=== PATIENT | male | born 1955 | race Caucasian/White ===

== ENCOUNTER → 2017-04-19 | Outpatient (CLI) | payer MEDICARE ==
--- NOTE | 2017-04-19 18:10 | CONS ---
DATE OF CONSULTATION: DATE: CONSULTATION/NEW PATIENT EVALUATION HISTORY OF PRESENT ILLNESS/SLEEP-WAKE EVALUATION: 61-year-old gentleman who has been seen in the sleep center for a central and obstructive sleep apnea-hypopnea syndrome. History of present illness/sleep-wake evaluation: Patient had been diagnosed with complex sleep apnea in 2011, after that what had had CPAP titration which was not very successful and the patient continued to have significant amount of central apneas total of 336 and obstructive apneas. He was started on treatment with auto PAP with regimen between 5 and 11 and according to the patient, with this regimen he does not have any snoring, sleeps well. Present his machine has had some problem. Humidifier does not work. SLEEP SCHEDULE: Patient's sleep schedule from around 10:00 p.m. until 6:00 a.m. FALLING ASLEEP: She has a TV set in bedroom. DURING SLEEP: Usually sleeps on the side position. Wakes up from sleep 3 times with one episode of nocturia. DURING THE DAY/WAKE STATE: [place] Sleepiness Scale today is 3. Patient is asking to replace his CPAP unit. Past medical history is positive for: 1. Hypertension. 2. Prostate cancer. 3. Leukemia. PAST SURGICAL HISTORY: Appendectomy, prostate has been removed in 2009. MEDICATIONS: 1. Vytorin. 2. Gleevec. 3. Magnesium. 4. Fish oil. 5. Centrum. SOCIAL HISTORY: Positive for smoking for about 40 years, presently about 1/2 pack a day. He continues smoking. Alcohol consumption: None. REVIEW OF SYSTEMS: Snoring, awakenings from sleep. No fevers. No double vision. No recent chest pain. No shortness of breath. No abdominal pain. No bleeding episodes. No blood in urine. No seizure episodes. FAMILY HISTORY: Hypertension, heart problems, hyperlipidemia, cancer, bronchitis, snoring, acid reflux. PHYSICAL EXAMINATION: During physical exam, gentleman without distress. VITAL SIGNS: BP 133/74, HR 74, RR 16. Height 5 feet 8-1/2 inches. Weight 231. BMI 34.6. Neck 18-1/2 inches in circumference. Temperature 97.8. Oxygen saturation at room air 96%. Oropharynx extremely low position of soft palate. Abdomen obese. NECK: Supple. No JVD. Thyroid is not palpable. LUNGS: Clear to percussion and to auscultation. Good air exchange. No wheezing or rhonchi. HEART: S1, S2 regular. No murmurs, gallops or rubs. ABDOMEN: Soft and nontender. Bowel sounds are present. No organomegaly appreciated. EXTREMITIES: No clubbing or cyanosis. STEP DOWN SPECIALIST: Awake, alert, and oriented x3. Cranial nerves 2 to 7 intact. There is no fasciculation or atrophy noted. No focal deficits observed. IMPRESSION: 1. Complex central and obstructive sleep apnea-hypopnea syndrome. Patient is on treatment with auto BiPAP with the range of pressure of 5 to 11. Presently technical problem with the machine. 2. Obesity. 3. Hypertension. 4. History of leukemia. 5. History of prostate cancer, status post prostatectomy. 6. Status post appendectomy. PLAN: 1. Prescription to replace CPAP unit with automatic regimen 5 to 11. 2. I will see the patient for follow-up visit about one month after he will be started on treatment with CPAP to evaluate clinical response on treatment, compliance with treatment and make any necessary adjustments. 3. Losing weight. 4. No driving if feeling any sleepiness. Thank you very much for allowing me to participate in the management of your patient. Sincerely, Dragan Brown MD, PhD, FAASM. Diplomat of [place] [employer], Sleep Medicine Board by [place] [employer] [employer] Integrity Director of [facility] [place]
== END | disposition home or self-care (01) ==
LOC: SLEEP 13:10
PROVIDERS: ATTEND Internal Medicine
DX: G47.33 Obstructive sleep apnea (adult) (pediatric) (principal); E66.9 Obesity, unspecified; I10 Essential (primary) hypertension; Z85.46 Personal history of malignant neoplasm of prostate; Z85.6 Personal history of leukemia; Z90.79 Acquired absence of other genital organ(s); Z90.89 Acquired absence of other organs; Z79.899 Other long term (current) drug therapy; Z87.891 Personal history of nicotine dependence
CPT/HCPCS: 99211

== ENCOUNTER → 2017-06-28 | Outpatient (CLI) | payer MEDICARE ==
--- NOTE | 2017-06-28 22:57 | PN ---
DATE OF SERVICE: 06/28/2017 This patient is a 62-year-old gentleman who has been followed in the sleep center for treatment of obstructive sleep apnea and central sleep apnea/ hypopnea syndrome. Recently the patient received a new CPAP unit and he is able to use the equipment every night without significant problems. He likes the new machine; sleeps better with it and feels better during the day. Today Prosser Sleepiness Scale is only 1. I checked the patient's unit. Usage is 30 out of 30 nights for more than 4 hours ; average 7.9 hours. Pressure is 11 cm of water. Leak is 13 L/minute. Apnea/ hypopnea index 8.9, related to central apneas 2.2; last night 7.5. MEDICATIONS: 1. Vytorin. 2. Gleevec. 3. Magnesium. 4. Fish oil. 5. Centrum. During physical exam, patient is a pleasant 62-year-old gentleman in no distress. VITAL SIGNS: BP 144/79, HR 92, RR 16. Weight 232. Temperature 98.0. Oxygen saturation at room air 96%. HEENT: PERRLA. EOMI. Evaluation of oropharynx showed tongue protrudes midline; extremely low position of soft palate. NECK: Supple. No JVD. Thyroid is not palpable. LUNGS: Clear to percussion and to auscultation. Good air exchange. No wheezing or rhonchi. HEART: S1, S2 regular. No murmurs, gallops or rubs. ABDOMEN: Obese. EXTREMITIES: No clubbing or cyanosis. SHIP CARPENTER: Awake, alert and oriented x3. Cranial nerves 2 through 7 are intact. There is no fasciculation or atrophy noted. No focal deficits observed. IMPRESSION: 1. Complex central and obstructive sleep apnea/hypopnea syndrome. Patient demonstrated 100% compliance with treatment, benefitting from treatment. 2. Obesity. 3. Hypertension. 4. History of leukemia. 5. History of prostate carcinoma, status post prostatectomy. 6. Status post appendectomy. PLAN: 1. I will continue to use the machine on automatic regimen from 5 cm of water, but I will increase maximal pressure to 13. 2. Losing weight. 3. Sleep hygiene with regular time in bed for at least 8 hours. 4. No driving if feeling any sleepiness. 5. Follow-up visit in 3 months. Thank you very much for allowing me to participate in the management of your patient. Sincerely, Dragan Brown. , PhD, FAASM. Diplomat of [place] [employer], Sleep Medicine Board by [place] [employer] [place] [employer] Chemical Laboratory Scientist of [facility] [place] [facility]
== END | disposition home or self-care (01) ==
LOC: SLEEP 15:11
PROVIDERS: ATTEND Internal Medicine
DX: G47.33 Obstructive sleep apnea (adult) (pediatric) (principal); E66.9 Obesity, unspecified; I10 Essential (primary) hypertension; Z98.890 Other specified postprocedural states

== ENCOUNTER → 2017-08-02 | Outpatient (CLI) | payer MEDICARE ==
--- NOTE | 2017-08-02 11:27 | PN ---
PROGRESS NOTE DATE OF SERVICE: 08/02/2017 A 62-year-old gentleman has been followed in Sleep Center for treatment of obstructive and central sleep apnea-hypopnea syndrome. During the previous visit because apnea- hypopnea index was increased to 8.9, I changed regimen in his machine. Patient continued to use his machine every night without problem according to his . No snoring. No daytime sleepiness. Wood Sleepiness Scale is 0. I checked patient's CPAP unit. I had set the range of the pressure 5 to 13 automatic regimen. The usage is 30/30 nights. Leak is 70 L/min. Pressure is 12.8 by the machine reading. Apnea-hypopnea index for the last night is 5.6, which is improving and for the last month in the range of 8. MEDICATIONS: Vytorin, Gleevec, magnesium supplement, fish oil, Centrum. PHYSICAL EXAM: Patient in no distress. BP 139/71, HR 82, RR 16, height 5, 8, weight 234, BMI 35.5, temperature 98.4, oxygen saturation on room air 96%. OROPHARYNX: Extremely low position of soft palate. ABDOMEN: Obese. Neck Supple, no JVD. Thyroid is not palpable. LUNGS Clear to percussion and to auscultation. Good air exchange. No wheezing or rhonchi. HEART S1, S2 regular. No murmurs, gallops, or rubs. EXTREMITIES No clubbing or cyanosis. PUBLIC RELATIONS COUNSELOR Awake, alert, and oriented X3. Cranial nerves 2 to 7 intact. There is no fasciculation or atrophy. noted. No focal deficits observed. IMPRESSION: 1. Complex obstructive and central sleep apnea-hypopnea syndrome. Patient demonstrated 100% compliance with treatment with increasing pressure. His breathing improved benefiting from treatment. 2. Obesity. 3. Hypertension. 4. History of leukemia. 5. History of prostate CA, status post prostatectomy. 6. Status post appendectomy. PLAN: 1. Patient will continue to use treatment every night for the whole night. 2. I will increase maximal pressure to 14. 3. Losing weight. 4. Sleep hygiene with regular time in bed for at least 8 hours. 5. No driving if feeling sleepiness. Thank you very much for allowing me to participate in the management of your patient. Sincerely, Dragan Brown MD, PhD, FAASM Diplomat of [employer] Medicine Automated Equipment Engineer Technician of [facility] [place] MMCLARKL / PATSYN: [id number] /
== END ==
LOC: SLEEP 09:44
PROVIDERS: ATTEND Internal Medicine
DX: G47.33 Obstructive sleep apnea (adult) (pediatric) (principal); E66.9 Obesity, unspecified; I10 Essential (primary) hypertension; Z90.89 Acquired absence of other organs; Z85.46 Personal history of malignant neoplasm of prostate; Z79.899 Other long term (current) drug therapy

== ENCOUNTER → 2018-03-28 | Outpatient (CLI) | payer MEDICARE ==
--- NOTE | 2018-03-28 10:12 | CTL ---
EXAMINATION TYPE: CT Low Dose Lung DATE OF EXAM ORDERED: 03/28/2018 HISTORY: Personal history of tobacco abuse. Lung cancer screening CT DLP: 126.[address] CTDI: 3.6 mGy Automated exposure control for dose reduction was used. SCREENING VISIT: Initial COMPARISON: None TECHNIQUE: Low dose computed tomography scan was performed through the chest at 1 mm thick sections a nd reconstructed images in the coronal plane at [address] DIAGNOSTIC QUALITY: Satisfactory FINDINGS: LUNG NODULES: There is a 5 mm solid pulmonary nodule within the right lung apex on series 4 image 23. There is a bilobed 1.2 cm pulmonary nodule within the right lung apex on series 4 image 37 that is so lid in nature and elongated. There is a 3 mm right upper lobe medial solid pulmonary nodule on series 4 image 43. There is a 2 mm solid pulmonary nodule on series 4 image 64 in the anterior right upper lobe. There is a groundglass nodule in the right upper lobe along the interlobar fissure peripherally on se anamika 4 image 111 measuring 5 mm. There is a subpleural 2 mm groundglass nodule within the lingula on series 4 image 186. Additional 2 mm pulmonary nodule within the lingula is seen on series 4 image 162. LUNGS: COPD: Severity: Mild centrilobular Fibrosis: Severity: None Lymph nodes: No adenopathy Other findings: None RIGHT PLEURAL SPACE: Effusion: None Calcification: None Thickening: None Pneumothorax: None LEFT PLEURAL SPACE: Effusion: None Calcification: None Thickening: None Pneumothorax: None HEART: Heart Size: Nonenlarged. However ascending thoracic aorta is enlarged measuring 4.4 cm on series 9 im age 23. Coronary calcification: Moderate Pericardial effusion: None OTHER FINDINGS: Upper abdomen: Multiple hypoattenuated hepatic lesions appear fluid attenuated and are favored to rep resent hepatic cysts, however full characterization is recommended. Some of these are subcentimeter a nd too small to accurately characterize. Single calcification is seen within the parenchyma of the li eugene medially near the hepatorenal fossa. Bony thorax: There are mild multilevel degenerative changes of the thoracic spine. Supraclavicular region: No adenopathy IMPRESSION: 1. Multiple bilateral pulmonary nodules. Findings are compatible with a LUNG-RADS 5X-trjcywigjg-rniiv ng for which additional diagnostic testing or tissue sampling is recommended. Elongated bilobed right upper lobe 1.2 cm pulmonary nodule is seen. Management with [address] or PET/CT could be p erformed. 2. Multiple fluid attenuated partially visualized hepatic lesions favored to represent cysts, however full characterization is recommended with enhanced abdominal CT. FOLLOW UP CT CHEST RECOMMENDATION: Management with [address] or PET/CT could be performed. CT LUNG RAD: Lung-Rad 4A Suspicious
== END | disposition home or self-care (01) ==
LOC: RADCTMAIN 08:49
PROVIDERS: ATTEND Internal Medicine Hematology & Oncology
DX: Z12.2 Encounter for screening for malignant neoplasm of respiratory organs (principal); R91.8 Other nonspecific abnormal finding of lung field; Z87.891 Personal history of nicotine dependence

== ENCOUNTER → 2018-04-02 | Outpatient (CLI) | payer MEDICARE | END | disposition home or self-care (01) | LOC: LABPAT 10:06 | PROVIDERS: ATTEND Orthopaedic Surgery | DX: Z01.812 Encounter for preprocedural laboratory examination (principal) | CPT/HCPCS: 87070 ==

== ENCOUNTER 2018-04-17 06:13 | Inpatient (IN) | payer MEDICARE ==
[2018-04-09 12:44] VITALS: BMI 32.1
--- NOTE | 2018-04-16 20:15 | HP ---
HISTORY AND PHYSICAL DATE OF SURGERY: 04/17/2018 Ernie Hou is a 62-year-old patient seen with symptomatic left knee osteoarthritis. After treatment options were discussed with him, he elected to proceed with left total knee arthroplasty. Consent regarding the procedure was obtained. Medical clearance was provided by Dr. Eamon Hartman. PAST MEDICAL HISTORY: Hypertension, hyperlipidemia. PAST SURGICAL HISTORY: Noncontributory. DAILY MEDICATIONS: 1. Lisinopril. 2. Vytorin. 3. Nuss-yxh-uupmrjn vitamins. ALLERGIES: BACTRIM. SOCIAL HISTORY: Patient smokes cigarettes. PHYSICAL EVALUATION OF THE LEFT KNEE: His range of motion is negative 2/3 to 115 degrees. There is a mild effusion present. Tenderness is noted along the medial joint line, crepitus along the medial patellofemoral compartments with range of motion. Ligaments are stable. Hip rotation without pain. Distal neurovascular exam intact. RADIOGRAPHS: Radiographs of the left knee revealed severe medial and moderate patellofemoral compartment osteoarthritis. IMPRESSION: 1. Left knee osteoarthritis. 2. Hypertension. 3. Hyperlipidemia. 4. Tobacco use. PLAN: Left total knee arthroplasty. MMODL / IJN: [id number] /
[~2018-04-17 06:13] MED LIST: ACETAMINOPHEN TAB 500 MG TAB PO ONE; MELOXICAM 7.5 MG TAB PO ONE; TRANEXAMIC ACID 1,000 MG in SODIUM CHLORIDE 0.9% 50 ML IVPB ONE; ceFAZolin IN SWFI 2 GM/20 ML SYRINGE IVP ONE
[2018-04-17] MEDS ORDERED: fentaNYL (PF) 50 MCG/ML 2 ML AMP ONE (06:46)
[2018-04-17] MEDS ORDERED: MIDAZOLAM 2 MG/2 ML VIAL ONE ×2 (06:46→08:22)
[2018-04-17] MEDS ORDERED: LACTATED RINGERS 1,000 ML IV ONE (07:01)
[2018-04-17] MEDS ORDERED: ONDANSETRON 4 MG/2 ML VIAL ONE (07:03)
[2018-04-17] MEDS ORDERED: fentaNYL (PF) 50 MCG/ML 2 ML AMP IVP ONE (07:06)
[2018-04-17] MEDS ORDERED: ONDANSETRON 4 MG/2 ML VIAL IVP ONE (07:22)
[2018-04-17] MEDS ORDERED: DEXAMETHASONE SOD PHOSPHATE 10 MG/ML 1 ML VIAL IV ONE (07:23)
[2018-04-17] MEDS ORDERED: SODIUM CHLORIDE 0.9% 100 ML BAG ONE (08:22)
[2018-04-17] MEDS ORDERED: TRANEXAMIC ACID 1,000 MG/10 ML VIAL ONE (08:22)
[2018-04-17] MEDS ORDERED: PROPOFOL 10 MG/ML 20 ML VIAL IV ONE (08:22)
[2018-04-17] MEDS: ROPIVACAINE 246.25 MG, EPINEPHrine 0.5 MG, KETOROLAC 30 MG, cloNIDine HCL/PF 80 MCG, WA... MISCELLANE ONE ×10 (09:02→11:25)
[2018-04-17] MEDS ORDERED: ceFAZolin 3,000 MG in SODIUM CHLORIDE 0.9% IRRIGATIO 3,000 ML IRRIGATION ONE (09:03)
--- NOTE | 2018-04-17 10:34 | P.OP ---
Date of Procedure: 04/17/18 Preoperative Diagnosis: Left knee osteoarthritis Postoperative Diagnosis: Left knee osteoarthritis Procedure(s) Performed: Left total knee arthroplasty Implants: 1. Luis Antonio persona size 8 left cruciate-retaining cemented femur 2. Luis Antonio persona size G left cemented tibial tray 3. Luis Antonio persona size 11 left medial congruent polyethylene tibial insert 4. Luis Antonio persona demented all polyethylene cemented patella Anesthesia: regional (Adductor canal block), local, spinal Surgeon: Gurjit Enriquez Estimated Blood Loss (ml): 50 Pathology: other Condition: stable Disposition: PACU Indications for Procedure: 62-year-old patient seen with symptomatic left knee osteoarthritis. After having treatment options discussed, he elected to proceed with total knee arthroplasty. Operative Findings: see description of procedure Description of Procedure: Patient was taken to the operative suite after having an adductor canal block performed by the department of anesthesia. Patient underwent a spinal anesthetic by the department of anesthesia. Patient was given preoperative IV intake antibiotics and TXA. A well-padded tourniquet was placed about the left lower extremity. The lower extremity was then prepped and draped in the normal sterile orthopedic fashion. The extremity was elevated, a tourniquet was insufflated to 300. A standard anterior incision was made sharply through skin. Dissection was taken down through the subcutaneous soft tissues down to the extensor mechanism. A medial arthrotomy was performed, patella was everted and knee was flexed. There was advanced osteoarthritis noted. A proximal tibial cutting guide was positioned. Proximal tibial cut was made. A distal intramedullary femoral cutting guide was positioned, distal femoral cut made. We placed the appropriate sizing guide and selected the appropriate size. A distal 4-in-1 femoral cutting block was positioned, distal femoral cuts were made. We now placed a trial femoral component into position, along with an appropriate size tibial tray and insert. We now took the knee through range of motion and had full extension good flexion and good overall soft tissue balance noted. The patella was everted and a flush cut made with patellar quad tendon. We templated the patella, appropriate drill holes were made. An appropriate trial patella was positioned, knee was taken through full range of motion with the patella tracking very nicely. The trial patella was removed. Drill holes were made through the femoral component. All trial components were removed after marking off the appropriate rotation of the tibia. Retractors were now positioned along the proximal tibia. An appropriate keel punch was made with the appropriate size tibial guide. At this point appropriate size implants were chosen and opened. The joint was irrigated copiously with pulse lavage mechanical irrigation. The posterior capsule was infiltrated with local analgesic. We mixed antibiotic methylmethacrylate. Once the methyl methacrylate was ready, the tibial component was cemented into place removing any excess methylmethacrylate. The femoral component was cemented into place removing the removing any excess methylmethacrylate. We then inserted the appropriate size polyethylene tibial insert. We made sure that it was locked into position. We took the knee into full extension, and then back in a flexion making sure we had removed any excess methylmethacrylate. The patellar component was then cemented down and secured with clamp. Excess methylmethacrylate removed. We kept the knee in full extension, patellar clamp in position until methylmethacrylate had hardened. Once it had hardened the patellar clamp was removed. The knee was taken through full range of motion. The patella tracked nicely. There was good soft tissue balancing. The tourniquet was now released. Additional hemostasis was achieved via electrocautery. A second gram of TXA was given. The wound was irrigated with pulse lavage mechanical irrigation. The superficial soft tissues were infiltrated local analgesic. The extensor mechanism was repaired with Vicryl. We checked the repair with range of motion and it was stable. The subcutaneous soft tissues were repaired with Vicryl in layers. The skin was approximated with pernio/Dermabond. Sterile dressings were applied followed by loose web roll and Gen bandage. The patient was transferred to a bed, and taken to recovery in stable and satisfactory condition.
[2018-04-17] MEDS ORDERED: ONDANSETRON 4 MG/2 ML VIAL IVP PRN (10:36)
[2018-04-17] MEDS ORDERED: HYDROmorphone 0.5 MG/0.5 ML SYRINGE IVP PRN ×3 (10:36)
[2018-04-17] MEDS ORDERED: hydrOXYzine PAMOATE 25 MG CAP PO PRN (10:36)
[2018-04-17] MEDS ORDERED: HYDROcodone/APAP 7.5-325MG 1 EACH TAB PO PRN ×2 (10:36)
[2018-04-17] MEDS ORDERED: NALOXONE 0.4 MG/ML 1 ML VIAL IV PRN (10:36)
[2018-04-17] MEDS ORDERED: ROPIVACAINE 1,100 MG, SODIUM CHLORIDE 0.9% 330 ML MISCELLANE PRN ×2 (10:53)
--- NOTE | 2018-04-17 10:54 | P.ONQ ---
Anesthesiology Proc Note - PNB - Peripheral Nerve Block Performed Left Adductor Canal Infusion Time Out Performed: Yes (704) Procedure Start Time: 07:05 Procedure Stop Time: :25 Indication: Acute Post-Operative Pain, Dx/Pain Location (Left Knee Pain), Requested by physician Sedation Type: Awake Preparation: Sterile Prep Position: Supine Catheter: Indwelling Needle Types: On-Q Needle Size: 100mm (4") Needle Gauge: 21 Technique: Ultrasound Injectate: 0.5% Ropivacaine (see comment for volume) (20ml) Blood Aspirated: No Pain Paresthesia on Injection Noted: No Resistance on Injection: Normal Events: Uneventful and Well Tolerated
--- NOTE | 2018-04-17 11:01 | XR ---
EXAMINATION TYPE: XR knee limited LT DATE OF EXAM: 04/17/2018 COMPARISON: NONE TECHNIQUE: Two views submitted HISTORY: Post op FINDINGS: There is a prosthetic knee in near anatomic alignment. There is soft tissue edema and emphysema. Th ere is a catheter or tubing overlying the soft tissues of the medial margin of the femur correlate cl inically. IMPRESSION: 1. Postoperative change. Appears in near-anatomic alignment see above.
[2018-04-17] MEDS: traMADol 50 MG TAB PO SCH ×3 (13:18→21:16)
[2018-04-17] MEDS: LACTATED RINGERS 1,000 ML IV SCH ×2 (13:19→23:29)
[2018-04-17] MEDS: ceFAZolin IN SWFI 2 GM/20 ML SYRINGE IVP SCH ×2 (16:40→23:28)
[2018-04-17] MEDS ORDERED: Imatinib Mesylate [Gleevec] 400 MG PO SCH (18:00)
[2018-04-17] MEDS: NICOTINE 14MG/24HR PATCH TRANSDERM SCH (18:44)
--- NOTE | 2018-04-17 19:52 | CONS ---
CONSULTATION DATE OF CONSULTATION: 04/17/2018 REASON FOR CONSULTATION: Medical management requested by Dr. Enriquez. CONSULTATION: This is a very pleasant 62-year-old patient of Dr. Hartman who has undergone left total knee arthroplasty. Post procedure he is sitting up in bed, comfortable. No chest pain or shortness of breath. No nausea or vomiting. Pain is controlled. Patient's chronic stable medical conditions include GERD, hypertension, hyperlipidemia, polycystic kidney disease and obstructive sleep apnea; does use a CPAP machine. Patient also has CML that is in remission. REVIEW OF SYSTEMS: CONSTITUTIONAL: None. HEENT: None. RESPIRATORY: None. CARDIOVASCULAR: None. GASTROINTESTINAL: Heartburn. GENITOURINARY: None. MUSCULOSKELETAL: Pain in different joints. DERMATOLOGICAL: None. HEMATOLOGICAL: None. LYMPHATIC: None. PSYCHIATRY: None. NEUROLOGICAL: None. PAST MEDICAL HISTORY: 1. GERD. 2. Hypertension. 3. Hyperlipidemia. 4. Polycystic kidney disease with cyst in the liver. 5. Obstructive sleep apnea; uses CPAP machine. 6. CML in remission. 7. Prostate cancer, treated with surgery. 8. Kidney stones x3, passed on his own. PAST SURGICAL HISTORY: 1. Appendectomy. 2. Orthopedic surgery. 3. Prostatectomy. 4. Bone marrow biopsy twice. 5. Hydrocele repair. SOCIAL HISTORY: . Has been smoking about half a pack a day for close to 47 years. Alcohol none. FAMILY HISTORY: Father of lung cancer at age 66. He was a smoker. HOME MEDICATIONS: 1. Omeprazole 20 mg a day. 2. Fish oil 1 capsule p.o. daily. 3. Multivitamin 1 tablet p.o. daily. 4. Magnesium oxide 500 mg p.o. daily. 5. Lisinopril 5 mg p.o. daily. 6. Probiotic 1 capsule p.o. daily. 7. Gleevec 400 mg p.o. daily at 6 p.m. 8. Vytorin 10/10 one tablet p.o. at bedtime. ALLERGIES: BACTRIM. PHYSICAL EXAMINATION: Temperature 97.7, pulse 77, respiration 16, blood pressure 146/73, pulse ox 97% on room air. GENERAL APPEARANCE: Average build. BMI 32.1. Sitting up, comfortable. EYES: Pupils equal. Conjunctivae normal. HEENT: External appearance of nose and ears normal. Oral cavity normal. NECK: JVD not raised. Mass not palpable. RESPIRATORY: Effort normal. LUNGS: Slightly decreased breath sounds. CARDIOVASCULAR: First and second sounds normal. No edema. ABDOMEN: Soft, nontender. Liver and spleen not palpable. LYMPHATIC: No lymph node palpable in neck or axillae. PSYCHIATRY: Alert and oriented x3. Mood and affect normal. NEUROLOGICAL: Pupils equal. Cranial nerves grossly intact. Power and sensation grossly intact. EXTREMITIES: Left knee in a dressing. INVESTIGATIONS: No blood work. ASSESSMENT: 1. Left total knee arthroplasty; left knee in a dressing. 2. Gastroesophageal reflux disease. 3. Essential hypertension. 4. Hyperlipidemia. 5. Polycystic kidney disease. 6. Obstructive sleep apnea; uses CPAP. 7. Chronic nicotine dependence. Patient is a cigarette smoker. 8. CML in remission. 9. Obesity; body mass index 32.1. PLAN: Home medications are resumed. DVT prophylaxis per Dr. Enriquez using Lovenox. Patient will be given a nicotine patch. Patient should follow up with Dr. Hartman upon discharge. Will have a dietitian see the patient for obesity. Thank you, Dr. Enriquez. MMODL / PATSYN: [id number] /
[2018-04-17] MEDS: ENOXAPARIN 30 MG/0.3 ML SYRINGE SQ SCH (20:22)
[2018-04-17] MEDS ORDERED: EZETIMIBE 10 MG TAB PO SCH (21:00)
[2018-04-17] MEDS ORDERED: SENNOSIDES-DOCUSATE SODIUM 1 EACH TAB PO SCH (21:00)
[2018-04-17] MEDS ORDERED: ATORVASTATIN 10 MG TAB PO SCH (21:00)
[2018-04-18 06:58] LABS: Basophils % (A) 0 %; Eosinophils % (A) 0 %; HCT 30.3 % (39.0-53.0); Lymphocytes # (A) 1.2 k/uL (1.0-4.8); Lymphocytes % (A) 8 %; MCH 31.8 pg (25.0-35.0); MCV 96.3 fL (80.0-100.0); Mean Platelet Volume 8.5; Monocytes # (A) 0.8 k/uL (0-1.0); Monocytes % (A) 5 %; Neutrophils # (A) 12.8 k/uL (1.3-7.7); Neutrophils % (A) 84 %; Platelet Count 163 k/uL (150-450); RBC 3.15 m/uL (4.30-5.90); RDW 14.1 % (11.5-15.5); WBC 15.2 k/uL (3.8-10.6)
[2018-04-18] MEDS ORDERED: PANTOPRAZOLE 40 MG TABLET PO SCH (07:30)
[2018-04-18 07:39] VITALS: BP 135/63; PULSE 60; RESP 14; TEMP 97.5
[2018-04-18] MEDS ORDERED: LISINOPRIL 5 MG TAB PO SCH (09:00)
[2018-04-18] MEDS ORDERED: FAMOTIDINE 20 MG TAB PO SCH (09:00)
[2018-04-18] MEDS ORDERED: MELOXICAM 7.5 MG TAB PO SCH (09:00)
[2018-04-18] MEDS ORDERED: MAGNESIUM OXIDE 400 MG TAB PO SCH (09:00)
[2018-04-18] MEDS: ENOXAPARIN 30 MG/0.3 ML SYRINGE SQ SCH (10:06)
[2018-04-18] MEDS: traMADol 50 MG TAB PO SCH (10:07)
[2018-04-18] MEDS: LACTOBACILLUS ACIDOPH & BULGAR 1 EACH PACKET PO SCH ×2 (10:08→10:15)
[2018-04-18] MEDS: NICOTINE 14MG/24HR PATCH TRANSDERM SCH (10:15)
--- NOTE | 2018-04-18 10:58 | P.PN ---
Subjective Progress Note Date: 04/18/18 Principal diagnosis: Status post left total knee arthroplasty Patient seen today resting in his hospital bed, he appears comfortable. His pain is well-controlled. He denies any chest pain or shortness of breath. Objective - Vital Signs Vital signs: Vital Signs Temp 97.5 F L 04/18/18 07:00 Pulse 60 04/18/18 07:00 Resp 14 04/18/18 07:00 BP 135/63 04/18/18 07:00 Pulse Ox 97 04/18/18 07:00 Intake & Output 04/17/18 04/18/18 04/18/18 18:59 06:59 18:59 Intake Total 1311 900 220 Output Total 50 Balance 1261 900 220 Weight 98.883 kg Intake: IV 551 Intake, IV Titration 160 400 Amount Lactated Ringers 1,000 ml 160 400 @ 80 mls/hr IV .[id number] CHRISTINA Rx#:[id number] Oral 600 500 220 Output: Estimated Blood Loss 50 Other: # Voids 1 1 1 - Exam Left lower extremity: Incision is clean, dry, and intact. The prineo tape is in good condition. There is minimal soft tissue swelling and ecchymosis surrounding the medial and lateral aspects of the incision. Calf is soft, no tenderness with palpation. Plantar flexion, dorsiflexion, EHL, FHL are intact. Sensory exam to light touch throughout the extremity is intact, dorsal pedis pulses 2+. - Labs CBC & Chem 7: 04/18/18 06:41 Labs: Abnormal Lab Results - Last 24 Hours (Table) 04/18/18 Range/Units 06:41 WBC 15.2 H (3.8-10.6) k/uL RBC 3.15 L (4.30-5.90) m/uL Hgb 10.0 L (13.0-17.5) gm/dL Hct 30.3 L (39.0-53.0) % Neutrophils # 12.8 H (1.3-7.7) k/uL Assessment and Plan Plan: Assessment: 1. Postop day #1 status post left total knee arthroplasty Plan: Pain control, we'll discharge home on oral medication GI and DVT prophylaxis, will utilize aspirin 325 mg twice a day for a month Wound care instructions were discussed Home therapy and nursing after discharge Pain catheter instructions are discussed Icing and elevating techniques were discussed Discharge planning: Patient likely be discharged home today Time with Patient: Less than 30
--- NOTE | 2018-04-18 11:04 | P.DS ---
Providers Date of admission: 04/17/18 06:13 Expected date of discharge: 04/18/18 Attending physician: Gurjit Enriquez Consults: 04/17/18 10:36 Consult Physician Routine Consulting Provider: Lucio Hartman Consult Reason/Comments: Medical management Do you want consulting provider notified?: Yes 04/17/18 11:41 Consult Physician Routine Consulting Provider: Lenard Navarro Consult Reason/Comments: medical management Do you want consulting provider notified?: Yes Primary care physician: Lucio Hartman [facility] Course: Date of admission: 04/17/2018 Date of discharge: 04/18/2018 Admission diagnosis: Status post left total knee arthroplasty Discharge diagnosis: Same Attending physician: Dr. Enriquez Surgical procedures: Left total knee arthroplasty Brief history: Patient is a 62-year-old male with a history of progressive primary left knee osteoarthritis. At this point patient has failed conservative treatment measures and has opted to proceed with a elective left total knee arthroplasty. Hospital course: Details of patient's surgery can be found in operative report. Patient tolerated the procedure well and was subsequently transported to orthopedic floor. Patient's orthopeidc and medical care was provided daily. Patient had daily laboratory tests performed for evaluation of overall blood counts. Patient had daily physical therapy to include strengthening range of motion as well as education with walker ambulation. Patient had daily CPM usage as part of their physical therapy program. Patient was treated with Lovenox for their postoperative DVT prophylaxis during their inpatient stay. Patient was noted to have a relatively uneventful postoperative course. Patient reported satisfactory pain control with oral pain medications by postoperative day 0. Patient showed satisfactory progress with physical therapy. Patient moved steadily through the program and had no difficulty meeting the goals by postoperative day 1. Given patient's otherwise satisfactory course and having met physical therapy goals, plan is to discharge patient home on postoperative day 1. Discharge condition/disposition: Patient will be discharged home in stable condition. Discharge medications: Instructions are given on resumption of patient's normal daily medications per primary care recommendation, in addition patient will be prescribed [place] 7.5 mg/325 mg, tramadol 50 mg, Colace 100 mg, aspirin 325 mg. Discharge instructions: 1. Wound care and infection precautions, keep incision dry and covered while showering, no lotions, creams, moisturizers. No soaking, tubs, pools, hottubs. Do not scrub over the incision. 2. Weight-bear as tolerated with walker / cane until follow-up. 3. Ice and elevate when necessary. Do not exceed 20 minutes per hour with ice pack. 4. Utilize compression sleeve until seen at first follow up appointment. 5. Visiting nursing care. 6. Home physical therapy including home CPM. 7. Pain meds and anticoagulants per prescription. 8. Pain medication has potential to cause constipation. Increase oral fluid and fiber intake. Contact primary care provider if you have not had a bowel movement within 48 hours after discharge 9. No anti-inflammatory medication until discussed at first post operative visit, this including Motrin, Aleve, Mobic, Diclofenac. 10. Follow up in office at 2 weeks postop with Jose Ramsey PA-C 11. Follow up with your primary care doctor 7-10 days after discharge. 12. Contact [facility] with any questions, . Procedures: Left total knee arthroplasty Patient Condition at Discharge: Good Plan - Discharge Summary Discharge Rx Participant: Yes New Discharge Prescriptions: New Aspirin 325 mg PO BID #60 tab Docusate [Colace] 100 mg PO DAILY #30 capsule HYDROcodone/APAP 7.5-325MG [[place] 7.5] 1 - 2 each PO Q6HR PRN #40 tab PRN Reason: Pain traMADol HCl [Ultram] 50 mg PO Q6H PRN #28 tab PRN Reason: Pain No Action Multivitamins, Thera [Theragran] 1 tab PO DAILY Imatinib Mesylate [Gleevec] 400 mg PO DAILY@1800 Omeprazole [Omeprazole] 20 mg PO QAM Lisinopril [Lisinopril] 5 mg PO QAM Strawn-3 Fatty Acids/Fish Oil [Fish Oil 1,000 mg Softgel] 1 cap PO DAILY Magnesium Oxide [Mag-Ox] 500 mg PO QAM Ibuprofen [Motrin] 600 mg PO DAILY PRN PRN Reason: Headache Ezetimibe/Simvastatin [Vytorin 10-10 mg Tablet] 1 tab PO HS L.acidoph,Paracasei, B.lactis [Probiotic] 1 cap PO DAILY Discharge Medication List Imatinib Mesylate [Gleevec] 400 mg PO DAILY@1800 06/15/15 [History] Lisinopril [Lisinopril] 5 mg PO QAM 06/15/15 [History] Multivitamins, Thera [Theragran] 1 tab PO DAILY 06/15/15 [History] Strawn-3 Fatty Acids/Fish Oil [Fish Oil 1,000 mg Softgel] 1 cap PO DAILY [History] Omeprazole [Omeprazole] 20 mg PO QAM 06/15/15 [History] Ezetimibe/Simvastatin [Vytorin 10-10 mg Tablet] 1 tab PO HS 03/13/16 [History] Ibuprofen [Motrin] 600 mg PO DAILY PRN 03/13/16 [History] Magnesium Oxide [Mag-Ox] 500 mg PO QAM 03/13/16 [History] L.acidoph,Paracasei, B.lactis [Probiotic] 1 cap PO DAILY 04/09/18 [History] Aspirin 325 mg PO BID #60 tab 04/18/18 [Rx] Docusate [Colace] 100 mg PO DAILY #30 capsule 04/18/18 [Rx] HYDROcodone/APAP 7.5-325MG [[place] 7.5] 1 - 2 each PO Q6HR PRN #40 tab 04/18/18 [ Rx] traMADol HCl [Ultram] 50 mg PO Q6H PRN #28 tab 04/18/18 [Rx] Follow up Appointment(s)/Referral(s): Lucio Hartman DO [Primary Care Provider] - 1 Week (Office will call to make an appointment) [facility], [NON-STAFF] - Scooter Ramsey PAC [PHYSICIAN PORTRAIT CONSULTANT] - 05/03/18 8:10 am Activity/Diet/Wound Care/Special Instructions: [facility] - [facility] Equipment -Please call once home to arrange delivery - Orthopedic Discharge Instructions: 1. Wound care and infection precautions, keep incision dry and covered while showering, no lotions, creams, moisturizers. No soaking, pools, hot tubs. Do not scrub over incision. 2. Weight-bear as tolerated with walker / cane until follow-up. 3. Ice and elevate when necessary. Do not exceed 20 minutes per hour with ice pack. 4. Utilize compression sleeve until seen at first follow up appointment. 5. Visiting nursing care. 6. Home physical therapy. 7. Pain meds and anticoagulants per prescription. 8. Pain medication has potential to cause constipation. Increase oral fluid and fiber intake. Contact primary care provider if you have not had a bowel movement within 48 hours after discharge. 9. No anti-inflammatory medication until discussed at first post operative visit, this including Motrin, Aleve, Mobic, Diclofenac. 10. Follow up in office at 2 weeks postop with Jose Ramsey PA-C 11. Follow up with your primary care doctor 7-10 days after discharge. 12. Contact [facility] with any questions, . Discharge Disposition: HOME WITH HOME HEALTH SERVICES
[2018-04-18] MEDS ORDERED: MULTIVITAMINS, THERA 1 EACH TAB PO SCH (12:00)
--- NOTE | 2018-04-19 06:51 | PN ---
PROGRESS NOTE DATE OF SERVICE: 04/18/18. PRESENTING COMPLAINT: Knee surgery. INTERVAL HISTORY: This patient was seen by me yesterday. Patient's pain is controlled. Doing well. No nausea, vomiting, tolerating a diet. No dizziness or lightheadedness. REVIEW OF SYSTEMS: Done for constitutional, cardiovascular, GI, pulmonary, musculoskeletal; relevant findings as above. CURRENT MEDICATIONS: Reviewed. EXAMINATION: On examination, temperature 97.5, pulse 60, respiratory 16, blood pressure 135/63, pulse ox 97% on room air. GENERAL APPEARANCE: Sitting up, comfortable. EYES: Pupils equal. Conjunctivae normal. HEENT: External appearance of nose and ears normal. Oral cavity normal. NECK: JVD not raised. Mass not palpable. RESPIRATORY: Effort, lungs slightly decreased breath sounds. CARDIOVASCULAR: 1st and 2nd sounds. No edema. ABDOMEN: Soft, nontender. Liver and spleen not palpable. PSYCHIATRY: Alert and oriented x3. Mood and affect normal. INVESTIGATIONS: White count 13.2, hemoglobin 10. ASSESSMENT: 1. Left total knee arthroplasty. 2. Gastroesophageal reflux disease. 3. Essential hypertension. 4. Hyperlipidemia. 5. Polycystic kidney disease. 6. Obstructive sleep apnea, uses CPAP. 7. Chronic nicotine dependence. Patient is a cigarette smoker. 8. CML in remission. 9. Obesity; BMI 32.1. 10.Leukocytosis likely reactive. PLAN: The knee incision is being followed by Orthopedics: According to them, the patient is feeling well. Clinically, there are no signs of infection. The patient has no fever. Feels well. I will let Orthopedics follow that. Otherwise patient is medically doing fine. Care was discussed with the patient. MMODL / IJN: [id number] /
== END 2018-04-18 13:10 | disposition home health service (06) | DRG 470 ==
LOC: 2ORMAIN 06:13 → 3SUR 11:18
PROVIDERS: ADMIT Orthopaedic Surgery; ATTEND Orthopaedic Surgery
PROC: 0SRD0J9 Replacement of Left Knee Joint with Synthetic Substitute, Cemented, Open Approach (ICD-10-PCS; principal; 2018-04-17 08:00)
DX: M17.12 Unilateral primary osteoarthritis, left knee (principal); C92.11 Chronic myeloid leukemia, BCR/ABL-positive, in remission; Q61.3 Polycystic kidney, unspecified; D72.829 Elevated white blood cell count, unspecified; E66.9 Obesity, unspecified; Z68.32 Body mass index [BMI] 32.0-32.9, adult; E78.5 Hyperlipidemia, unspecified; F17.210 Nicotine dependence, cigarettes, uncomplicated; G47.33 Obstructive sleep apnea (adult) (pediatric); I10 Essential (primary) hypertension; K21.9 Gastro-esophageal reflux disease without esophagitis; Z79.899 Other long term (current) drug therapy; Z80.1 Family history of malignant neoplasm of trachea, bronchus and lung; Z85.46 Personal history of malignant neoplasm of prostate; Z87.442 Personal history of urinary calculi; Z88.2 Allergy status to sulfonamides
CPT/HCPCS: 85025; 88305; 88311

== ENCOUNTER → 2019-07-17 | Outpatient (CLI) | payer MEDICARE ==
--- NOTE | 2019-07-17 17:18 | PN ---
PROGRESS NOTE DATE OF SERVICE: 07/17/2019 This patient is a 64-year-old gentleman who has been followed in Sleep Center for treatment of obstructive sleep apnea-hypopnea syndrome. Patient successfully continues to use his CPAP equipment every night for the whole night. No snoring with the machine. He sleeps well. [place] Sleepiness Scale today is only 2, which is totally normal. I checked his CPAP unit. Range of the pressure is 5 to 14, average pressure for the whole year 13.1. Usage for the whole year is 364/365 nights for more than 4 hours, with average usage 7.6 hours. Leak is 22 L/minute. Apnea-hypopnea index reading for the year is 4.9, which is normal range. For the last week, apnea-hypopnea index is 6.6, slightly high, probably because the patient did not change his equipment for a while. MEDICATIONS: 1. Vytorin. 2. Gleevec. 3. Magnesium supplement. 4. Fish oil. 5. Centrum. 6. Medication for blood pressure; patient does not remember the name. PHYSICAL EXAMINATION: GENERAL: A pleasant patient in no distress. VITAL SIGNS: BP 147/78, HR 78, RR 16, height 5 feet 8 inches, weight 223, body mass index 33.9. Temperature 98.1. Oxygen saturation at room air 98%. HEENT: PERRLA, EOMI. Evaluation of oropharynx showed tongue protrudes midline. Extremely low position of soft palate. Mallampati IV. NECK: Supple. No JVD. Thyroid is not palpable. LUNGS: Clear to percussion and to auscultation. Good air exchange. No wheezing or rhonchi. HEART: S1, S2 regular. No murmurs, gallops or rubs. ABDOMEN: Slightly obese. EXTREMITIES: No clubbing or cyanosis. MATERIALS SPECIALIST: Awake, alert, and oriented X3. Cranial nerves 2 to 7 intact. There is no fasciculation or atrophy. noted. No focal deficits observed. IMPRESSION: 1. Obstructive and central sleep apnea-hypopnea syndrome. The patient demonstrated 100% compliance with treatment, benefitting from treatment. 2. Hypertension. 3. Obesity. 4. History of leukemia. 5. History of prostate carcinoma, status post prostatectomy. 6. Status post appendectomy. PLAN: 1. Patient will continue to use CPAP equipment every night for the whole night. 2. Watching and losing weight. 3. Sleep hygiene with regular time in bed for at least 8 hours. 4. No driving if feeling any sleepiness. 5. Prescriptions for all necessary CPAP supplies, including Nieves FX medium mask and heated tubing. Thank you very much for allowing me to participate in the management of your patient. Sincerely, Dragan Brown MD, PhD, FAASM Diplomat of [employer] Laundry Room Attendant of [facility] [place] MMODL / PATSYN: [id number] /
== END | disposition home or self-care (01) ==
LOC: SLEEP 14:56
PROVIDERS: ATTEND Internal Medicine
DX: G47.33 Obstructive sleep apnea (adult) (pediatric) (principal); I10 Essential (primary) hypertension; E66.9 Obesity, unspecified; Z68.33 Body mass index [BMI] 33.0-33.9, adult; Z85.6 Personal history of leukemia; Z85.46 Personal history of malignant neoplasm of prostate; Z90.79 Acquired absence of other genital organ(s); Z99.89 Dependence on other enabling machines and devices; Z98.890 Other specified postprocedural states; Z79.899 Other long term (current) drug therapy

== ENCOUNTER → 2020-07-15 | Outpatient (CLI) | payer MEDICARE ==
--- NOTE | 2020-07-15 17:49 | SFUN ---
SLEEP CENTER FOLLOW UP NOTE DATE OF SERVICE: 07/15/2020 This patient is a 65-year-old gentleman who has been followed in the sleep center for treatment of obstructive sleep apnea-hypopnea syndrome. The patient continues to use his CPAP equipment every night for the whole night. No snoring with the machine. [place] Sleepiness Scale today is 4, which is normal. I checked his CPAP unit. CPAP range of pressure is 5 to 14, average pressure 11.5 cm of water. Usage is 30/30 nights for more than 4 hours with average usage 8.1 hours per night. Leak is 20 L/minute, which is acceptable. Apnea-hypopnea index for the last night is 2.9, but average apnea-hypopnea index for the last month is 8.1 with a central apnea-hypopnea index 4.2. MEDICATIONS: Amlodipine, omeprazole, atorvastatin, cyclobenzaprine. PHYSICAL EXAMINATION: GENERAL: A pleasant patient in no distress. VITAL SIGNS: BP 132/82, HR 86, RR 16, height 5 feet 8 inches, weight 209, BMI 31.7, temperature 98.1, oxygen saturation at room air 98%. HEENT: PERRLA, EOMI. Evaluation of oropharynx showed tongue protrudes midline. Extremely low position of soft palate. Mallampati IV. NECK: Supple. No JVD. Thyroid is not palpable. Wide neck; 17-1/2 inches in circumference. LUNGS: Clear to percussion and to auscultation. Good air exchange. No wheezing or rhonchi. HEART: S1, S2 regular. No murmurs, gallops or rubs. ABDOMEN: Slightly obese. EXTREMITIES: No clubbing or cyanosis. SLOT MACHINE REPAIRER: Awake, alert, and oriented X3. Cranial nerves 2 to 7 intact. There is no fasciculation or atrophy. noted. No focal deficits observed. IMPRESSION: 1. Obstructive sleep apnea-hypopnea syndrome. Patient demonstrated 100% compliance with treatment, benefitting from treatment. Slight abnormalities of respiration by reading of the machine, with apnea-hypopnea index for the last one months 8.1, and central apnea-hypopnea index 4.2. 2. Hypertension. 3. Obesity. 4. History of leukemia. 5. History of prostate carcinoma, status post prostatectomy. 6. Status post appendectomy. PLAN: 1. Will proceed with a split-night study following the requirements from [employer] and Medicare, and also because of increasing apnea-hypopnea index reading from the machine, including some central apneas. 2. Patient will continue to use PAP equipment every night for the whole night. 3. Sleep hygiene with regular time in bed for at least 7-1/2 to 8 hours. 4. Precautions related to driving. No driving if feeling sleepiness. 5. I will maintain all necessary prescription for PAP supplies, including mask, tube, filters. 6. Watching weight. 7. No driving if feeling sleepiness. 8. Follow-up visit in 6 months or earlier if patient has any problems. Thank you very much for allowing me to participate in the management of your patient. Sincerely, Dragan Brown MD, PhD, FAASM Diplomat of [employer] Construction Assistant of [facility] [place] JONATHAN / MICHAEL: [id number] /
== END | disposition home or self-care (01) ==
LOC: SLEEP 09:57
PROVIDERS: ATTEND Internal Medicine
DX: G47.33 Obstructive sleep apnea (adult) (pediatric) (principal); I10 Essential (primary) hypertension; E66.9 Obesity, unspecified; Z85.46 Personal history of malignant neoplasm of prostate; Z90.79 Acquired absence of other genital organ(s); Z99.89 Dependence on other enabling machines and devices; Z90.49 Acquired absence of other specified parts of digestive tract; Z85.6 Personal history of leukemia

== ENCOUNTER → 2020-09-23 | Outpatient (CLI) | payer MEDICARE ==
--- NOTE | 2020-09-24 01:42 | SFUN ---
SLEEP CENTER FOLLOW UP NOTE This is telemedicine appointment. Telemedicine appointment done with the patient because the patient presently moved to [place]. Appoint done for followup patient for obstructive sleep apnea-hypopnea syndrome. Patient had split-night sleep study on 07/22/2020 and I discussed results of the sleep study with the patient in detail. Sleep study showed extremely severe obstructive sleep apnea-hypopnea syndrome with total apnea-hypopnea index 68.7, and oxygen saturation to 85.1%. On CPAP, respiration was on control. Patient continued to use his CPAP equipment. I checked reading from his CPAP machine. Pressure is 10 cm of water. Usage is 100% of the time more than 4 hours with average usage 8 hours 31 minutes 95%. Leak is .5 L/minute. is 5.7, which is acceptable. Apnea-hypopnea index is only 3.7, which is normal range. The patient clinically feels well. Continues to use his CPAP equipment every night. MEDICATIONS: Amlodipine, omeprazole, atorvastatin, imatinib. During observation of patient, he is awake, alert, oriented x3. HEENT: Normal eye movements. Normal expression of the face. The patient speaks well. IMPRESSION: 1. Obstructive sleep apnea-hypopnea syndrome. Patient demonstrated 100% compliance with treatment, benefitting from treatment. Normal respiration on CPAP. 2. Hypertension. 3. Obesity. 4. History of leukemia. 5. History of prostate carcinoma, status post prostatectomy. 6. Status post appendectomy. PLAN: 1. Patient will continue to use PAP equipment every night for the whole night. 2. Sleep hygiene with regular time in bed for at least 7-1/2 to 8 hours. 3. Precautions related to driving. No driving if feeling sleepiness. 4. I will maintain all necessary prescription for PAP supplies including mask, tube, filters. 5. Watching weight. 6. No driving if feeling sleepiness. 7. Follow-up visit in 6 months or earlier if patient has any problems. Thank you very much for allowing me to participate in management of your patient. Sincerely, Dragan Brown MD, PhD, FAASM Diplomat of [employer] Team Member of [facility] [place] MMODL / IJN: [id number] /
== END | disposition home or self-care (01) ==
LOC: SLEEP 17:33
PROVIDERS: ATTEND Internal Medicine
DX: G47.33 Obstructive sleep apnea (adult) (pediatric) (principal); I10 Essential (primary) hypertension; E66.9 Obesity, unspecified; Z85.6 Personal history of leukemia; Z85.46 Personal history of malignant neoplasm of prostate; Z85.89 Personal history of malignant neoplasm of other organs and systems; Z98.890 Other specified postprocedural states; Z79.899 Other long term (current) drug therapy; Z99.89 Dependence on other enabling machines and devices

== ENCOUNTER → 2021-03-08 | Outpatient (CLI) | payer MEDICARE ==
--- NOTE | 2021-03-08 14:35 | MR ---
EXAMINATION TYPE: MR knee RT wo con DATE OF EXAM: 03/08/2021 COMPARISON: None HISTORY: Right knee pain TECHNIQUE: Multiplanar, multisequence imaging of the right knee is performed without IV contrast. FINDINGS: MEDIAL MENISCUS: Tear posterior horn medial meniscus LATERAL MENISCUS: Anterior and posterior horns are intact without tear. CRUCIATE LIGAMENTS: Strain noted of the medial collateral ligament. No complete tear seen. Lateral co llateral ligament is intact. COLLATERAL LIGAMENTS: The medial collateral ligament and lateral collateral ligament complex are inta ct and unremarkable. EXTENSOR MECHANISM: Visualized quadriceps and patellar tendons are intact. EFFUSION: No significant suprapatellar joint effusion. POPLITEAL CYST: 3 cm Benítez's cyst noted. TRICOMPARTMENT SPACES: Intact CARTILAGE: Intact BONE MARROW SIGNAL: No focal abnormal marrow signal is appreciated. OTHER: No additional significant abnormality is appreciated. IMPRESSION: 1. Tear posterior horn medial meniscus. 2. Strain of the medial collateral ligament. 3. Benítez's cyst.
== END | disposition home or self-care (01) ==
LOC: RADMRIMAIN 12:47
PROVIDERS: ATTEND Orthopaedic Surgery
DX: M23.321 Other meniscus derangements, posterior horn of medial meniscus, right knee (principal); M71.21 Synovial cyst of popliteal space [Baker], right knee; S83.411A Sprain of medial collateral ligament of right knee, initial encounter

== ENCOUNTER → 2021-03-16 | Outpatient (CLI) | payer MEDICARE ==
--- NOTE | 2021-03-16 21:52 | SFUN ---
SLEEP CENTER FOLLOW UP NOTE DATE OF SERVICE: 03/16/2021 This 65-year-old gentleman has been followed in the sleep center for treatment of obstructive sleep apnea-hypopnea syndrome. The patient continues to use his CPAP equipment every night successfully without complaints about any equipment issues. He is receiving all of his supplies on time. [place] Sleepiness Scale today is 3, which is totally normal. I checked his CPAP unit. Pressure is 10 cm of water. Usage is 30/30 nights for more than 4 hours, average 8.1 hours per night. Leak is 29 L/minute. At the same time, apnea- hypopnea index was only 3.1, which is totally perfect. MEDICATIONS: 1. Atorvastatin once a day. 2. Amlodipine once a day. 3. Imatinib 4 times a day. PHYSICAL EXAMINATION: GENERAL: A pleasant patient in no distress. VITAL SIGNS: BP 148/73, HR 81, RR 12. Height 5 feet 8-1/2 inches, weight 200.8 pounds, body mass index 30.1, temperature 97.8, oxygen saturation at room air 100%. HEENT: PERRLA, EOMI. Evaluation of oropharynx showed tongue protrudes midline. Extremely low position of soft palate. Mallampati IV. NECK: Supple. No JVD. Thyroid is not palpable. LUNGS: Clear to percussion and to auscultation. Good air exchange. No wheezing or rhonchi. HEART: S1, S2 regular. No murmurs, gallops or rubs. ABDOMEN: Soft and nontender. Bowel sounds are present. No organomegaly appreciated. EXTREMITIES: No clubbing or cyanosis. JACK FRAME TENDER: Awake, alert, and oriented X3. Cranial nerves 2 to 7 intact. There is no fasciculation or atrophy. noted. No focal deficits observed. IMPRESSION: 1. Obstructive sleep apnea-hypopnea syndrome. Patient demonstrated 100% compliance with treatment, benefitting from treatment. Normal respiration on CPAP. 2. Hypertension. 3. Obesity. 4. History of leukemia. 5. History of prostate carcinoma, status post prostatectomy. 6. Status post appendectomy. PLAN: 1. Patient will continue to use PAP equipment every night for the whole night. 2. Sleep hygiene with regular time in bed for at least 7-1/2 to 8 hours. 3. Precautions related to driving. No driving if feeling sleepiness. 4. I will maintain all necessary prescription for PAP supplies including mask, tube, filters. 5. Watching weight. 6. Follow-up visit in 6 months or earlier if patient has any problems. Thank you very much for allowing me to participate in the management of your patient. Sincerely, Dragan Brown MD, PhD, FAASM Diplomat of [employer] Technician of [facility] [place] MMODL / PATSYN: [id number] /
== END ==
LOC: SLEEP 16:23
PROVIDERS: ATTEND Internal Medicine
DX: G47.33 Obstructive sleep apnea (adult) (pediatric) (principal); I10 Essential (primary) hypertension; Z68.30 Body mass index [BMI] 30.0-30.9, adult; Z85.6 Personal history of leukemia; Z85.46 Personal history of malignant neoplasm of prostate; Z90.79 Acquired absence of other genital organ(s); Z90.49 Acquired absence of other specified parts of digestive tract

== ENCOUNTER → 2021-04-14 | Outpatient (CLI) | payer MEDICARE ==
[2021-04-14 09:21] LABS: Potassium 4.7 mmol/L (3.5-5.1)
[2021-04-14 09:29] LABS: Basophils % (A) 0 %; Eosinophils # (A) 0.4 k/uL (0-0.7); Eosinophils % (A) 5 %; HCT 31.9 % (39.0-53.0); HGB 10.1 gm/dL (13.0-17.5); Lymphocytes # (A) 1.4 k/uL (1.0-4.8); Lymphocytes % (A) 17 %; MCH 31.7 pg (25.0-35.0); MCHC 31.8 g/dL (31.0-37.0); MCV 99.7 fL (80.0-100.0); Mean Platelet Volume 8.2; Monocytes # (A) 0.4 k/uL (0-1.0); Monocytes % (A) 5 %; Neutrophils # (A) 5.8 k/uL (1.3-7.7); Neutrophils % (A) 70 %; Platelet Count 215 k/uL (150-450); WBC 8.3 k/uL (3.8-10.6)
== END | disposition home or self-care (01) ==
LOC: LABPAT 07:17
PROVIDERS: ATTEND Orthopaedic Surgery
DX: Z01.812 Encounter for preprocedural laboratory examination (principal); M23.91 Unspecified internal derangement of right knee; R94.31 Abnormal electrocardiogram [ECG] [EKG]
CPT/HCPCS: 36415; 80051; 85025; 93005

== ENCOUNTER 2021-04-28 09:49 | Day surgery (SDC) | payer MEDICARE ==
[2021-04-25 17:19] VITALS: BMI 29.0
--- NOTE | 2021-04-27 15:09 | HP ---
HISTORY AND PHYSICAL REASON FOR ADMISSION: Surgery scheduled for 04/28/2021. HISTORY OF PRESENT ILLNESS: Ernie Hou is a 65-year-old patient seen with progressive right knee pain. We discussed options for treatment. He elected to proceed with right knee arthroscopy. Consent was obtained. PAST MEDICAL HISTORY: Asthma and hyperlipidemia, hypertension. PAST SURGICAL HISTORY: Appendectomy. DAILY MEDICATIONS: Amlodipine, atorvastatin, omeprazole. ALLERGIES: BACTRIM. SOCIAL HISTORY: He smokes half a pack cigarettes daily. PHYSICAL EXAMINATION: Evaluation of the right knee: Range of motion is negative 3 to 115. Mild effusion. Tenderness medial joint line. Positive medial Yajaira's. Ligaments stable. Hip rotation without pain. Distal neurovascular exam is intact. RADIOGRAPHS: Right knee radiographs revealed moderate medial and patellofemoral compartment osteoarthritis. MRI right knee revealed medial meniscal tear and Benítez's cyst. IMPRESSION: 1. Internal derangement of right knee with medial meniscal tear. 2. Hypertension. 3. Hyperlipidemia. PLAN: Right knee arthroscopy with partial meniscectomy and debridement. MMODL / IJN: [id number] /
[~2021-04-28 09:49] MED LIST changes: -ACETAMINOPHEN TAB 500 MG TAB PO ONE; +DEXAMETHASONE SOD PHOSPHATE 4 MG/ML 1 ML VIAL IV ONE; +HYDROmorphone 0.5 MG/0.5 ML SYRINGE IVP PRN; +LACTATED RINGERS 1,000 ML IV SCH; +LIDOCAINE 1% (10MG/ML) FOR IV START INTRADERMA PRN; -MELOXICAM 7.5 MG TAB PO ONE; +MIDAZOLAM 2 MG/2 ML VIAL IV PRN; +ONDANSETRON 4 MG/2 ML VIAL IVP ONE; -TRANEXAMIC ACID 1,000 MG in SODIUM CHLORIDE 0.9% 50 ML IVPB ONE; -ceFAZolin IN SWFI 2 GM/20 ML SYRINGE IVP ONE
[2021-04-28] MEDS ORDERED: ONDANSETRON 4 MG/2 ML VIAL IVP ONE (10:44)
[2021-04-28] MEDS ORDERED: DEXAMETHASONE SOD PHOSPHATE 4 MG/ML 1 ML VIAL IVP ONE (10:44)
[2021-04-28] MEDS ORDERED: PROPOFOL 10 MG/ML 20 ML VIAL IV ONE (11:17)
[2021-04-28] MEDS ORDERED: MIDAZOLAM 2 MG/2 ML VIAL ONE (11:17)
[2021-04-28] MEDS ORDERED: fentaNYL (PF) 50 MCG/ML 2 ML AMP ONE (11:17)
[2021-04-28] MEDS ORDERED: LIDOCAINE 1% INJ 10MG/ML (20 ML MDV) ONE (11:17)
[2021-04-28] MEDS ORDERED: BUPIVACAINE (PF) 0.25% 30 ML VIAL SQ ONE (11:44)
--- NOTE | 2021-04-28 12:15 | P.OP ---
Date of Procedure: 04/28/21 Preoperative Diagnosis: Internal derangement right knee Postoperative Diagnosis: 1. Tear medial meniscus right knee 2. Grade 2/3 chondromalacia medial femoral condyle right knee 3. Grade 2/3 chondromalacia lateral femoral condyle right knee 4. Reactive synovitis medial, lateral and suprapatellar compartments right knee Procedure(s) Performed: 1. Arthroscopic partial medial meniscectomy right knee 2. Arthroscopic chondroplasty medial femoral condyle right knee 3. Arthroscopic chondroplasty lateral femoral condyle right knee 4. Arthroscopic partial synovectomy medial, lateral and suprapatellar compartments right knee Anesthesia: ERNIEA, local Surgeon: Gurjit Enriquez Estimated Blood Loss (ml): 7 Pathology: none sent Condition: stable Disposition: PACU Indications for Procedure: 65-year-old patient seen with progressive right knee pain. After treatment options were discussed, he elected to proceed with arthroscopy. Operative Findings: see description of procedure Description of Procedure: Patient was taken to the operative suite. Patient underwent a general anesthetic by the department of anesthesia. Patient was given preoperative antibiotics. The right lower extremity was placed in a well-padded arthroscopic leg arshad. The right leg was prepped and draped in the normal sterile orthopedic fashion. A lateral parapatellar and suprapatellar incision was made. Trochars were inserted. Arthroscopy was initiated. Suprapatellar pouch revealed diffuse thick reactive synovitis. The patellofemoral joint appeared to articulate congruently. There was grade 2 chondromalacia of the patella with no osteochondral tears present. The scope was guided into the medial gutter. No loose bodies or plica were identified. The scope was then guided into the medial compartment. A medial parapatellar incision was made. Trocar inserted followed by probe. There was a complex tear involving the posterior horn and midbody medial meniscus. There were grade 2/3 chondral malacia changes of the medial femoral condyle with some osteochondral tears present. There was near grade 4 chondromalacia along the medial aspect of the medial tibial plateau with exposed bone measuring 1 x 1 cm. There was thick reactive synovitis anteriorly. I performed a partial medial meniscectomy getting down to stable meniscal tissue. I performed a chondroplasty of the medial femoral condyle getting down to stable osteochondral tissue. I performed a partial synovectomy decompressing the thick reactive synovitis anteriorly. The shaver was removed. The residual meniscus was probed and was found to be stable. The residual osteochondral surface of the medial femoral condyle was stable. There was good decompression of the synovitis. Scope and probe were then guided into the intercondylar notch. Cruciates were identified, probed and found to be stable. The scope and probe were then guided into lateral compartment. To some fraying of the lateral meniscus midbody area. There were grade 2/3 chondromalacia changes of the medial femoral condyle some osteochondral tears present. There was thick reactive synovitis anteriorly. I introduced a motorized shaver and debrided the area of fraying of the lateral meniscus. I performed a chondroplasty of the lateral femoral condyle getting down to stable osteochondral tissue. I performed a partial synovectomy decompressing thick reactive synovitis anteriorly. Shaver was removed. The residual meniscus was stable. There was good decompression of the synovitis. The scope was in guided back into the suprapatellar compartment. I introduced a motorized shaver into the suprapatellar compartment. I debrided some piecemeal fragments of meniscus I encountered. I performed a partial synovectomy decompressing thick reactive synovitis. Shaver was removed. There was good decompression of the synovitis. I took one more look on the entire knee, no residual debris. Instruments were now removed from the joint. The joint was infiltrated with .25% Marcaine. Steri-Strips were applied to the portal sites. Sterile dressings were applied. The patient was placed into a CHIDI hose. No tourniquet was utilized. The patient was awakened, transferred to a bed and taken to recovery stable satisfactory condition.
[2021-04-28 12:17] VITALS: TEMP 96.8
[2021-04-28 12:47] VITALS: PULSE 66; RESP 16
[2021-04-28 12:59] VITALS: BP 150/69
== END 2021-04-28 13:22 | disposition home or self-care (01) ==
LOC: OR 09:49
PROVIDERS: ATTEND Orthopaedic Surgery
DX: S83.241A Other tear of medial meniscus, current injury, right knee, initial encounter (principal); M94.261 Chondromalacia, right knee; M65.9 Synovitis and tenosynovitis, unspecified; I10 Essential (primary) hypertension; E78.5 Hyperlipidemia, unspecified; J45.909 Unspecified asthma, uncomplicated; Z79.899 Other long term (current) drug therapy; F17.210 Nicotine dependence, cigarettes, uncomplicated; G47.33 Obstructive sleep apnea (adult) (pediatric); Z85.46 Personal history of malignant neoplasm of prostate; Z88.2 Allergy status to sulfonamides; Z88.8 Allergy status to other drugs, medicaments and biological substances
CPT/HCPCS: 29881; 29876; J2250; J1100; J0690; J2405; J2001; J3010; J2704

== ENCOUNTER → 2022-03-16 | Outpatient (CLI) | payer MEDICARE ==
--- NOTE | 2022-03-16 15:32 | P.PN ---
Subjective DATE: [03/16/2022] FOLLOW UP VISIT. Patient with history of obstructive sleep apnea hypopnea syndrome return to sleep center for follow-up visit. Patient is using PAP every night for the whole night. The patient does not have significant problems with the mask, PAP unit and humidification. Patient getting his supplies in time. The sleepiness scale is 2. I checked his Cpap unit pressure is 10 cm of water, usage is 13 out of 13 nights for more than 4 hours, average 8.7 hours per night and leak is 28 L/m apnea- hypopnea index 1.6 which is normal MEDICATIONS:[amlodipine 2.5 mg once a day omeprazole 20 mg once a day atorvastatin 10 mg once a day, imatinib 400 mg once a day, [id number] mg a once a day] During physical exam: GENERAL: A pleasant patient without any distress. VITAL SIGNS: BP [145/74], HR [92], RR[18] , weight[179.6] . HEENT: PERRLA, EOMI. . NECK: Supple. No JVD. LUNGS: Clear to percussion and to auscultation. Good air exchange. No wheezing or rhonchi. HEART: S1, S2 regular. ABDOMEN: Soft and nontender. EXTREMITIES: No clubbing or cyanosis. INSTRUCTIONAL MATERIALS DIRECTOR: Awake, alert, and oriented x3. No focal deficit. Impressions: 1. Obstructive sleep apnea-hypopnea syndrome.Patient demonstrated great compliance with treatment, benefiting from treatment. 2.hypertension. 3 obesity. 4.history of leukemia 5 that history of prostate CA status post prostatectomy 6. a status post appendectomy [] Plan: 1. Continue using Pap equipment every night for the whole night. 2. Sleep hygiene with regular time in bed for at least 8 hours. 3. No driving if feel any sleepiness. 4. Prescription for PAP supplies including mask, tube, filters. Thank you very much for allowing me to participate in management of your patient. Dragan Brown MD, PhD, FAASM. Diplomat of [employer], Sleep Medicine Board by [employer] Relationship Counselor of [facility] [place] 03/16/2022
== END ==
LOC: SLEEP 14:06
PROVIDERS: ATTEND Internal Medicine
DX: G47.33 Obstructive sleep apnea (adult) (pediatric) (principal); I10 Essential (primary) hypertension; E66.9 Obesity, unspecified; Z85.46 Personal history of malignant neoplasm of prostate; Z90.49 Acquired absence of other specified parts of digestive tract; Z90.79 Acquired absence of other genital organ(s); Z85.6 Personal history of leukemia; Z88.6 Allergy status to analgesic agent; Z88.2 Allergy status to sulfonamides; F17.200 Nicotine dependence, unspecified, uncomplicated

== ENCOUNTER 2023-03-01 09:58 | Inpatient (IN) | payer OTHER, MEDICARE ==
[2023-03-01] MEDS ORDERED: ASPIRIN 81 MG PO STA (10:19)
--- NOTE | 2023-03-01 10:24 | ED ---
General Adult HPI - General Chief complaint: Chest Pain Stated complaint: Chest pain Time Seen by Provider: 03/01/23 10:07 Source: patient, RN notes reviewed Mode of arrival: ambulatory Limitations: no limitations - History of Present Illness Initial comments: Patient is a pleasant [age]-year-old male presenting to the emergency Department with chest discomfort. Onset of symptoms was 3 days ago. Symptoms are exertional. Symptoms are near resolved at rest and currently only 1 or 2/10. Discomfort is described as tightness. There is associated exertional dyspnea. No leg pain or leg swelling. No nausea or diaphoresis. No history of similar symptoms previously. Patient did have some palpitations at the onset of symptoms, none since - Related Data Home Medications Medication Instructions Recorded Confirmed Omeprazole 20 mg PO QAM 06/15/15 03/10/22 Atorvastatin [Lipitor] 10 mg PO HS 03/15/21 03/10/22 Cyclobenzaprine HCl 10 mg PO HS 03/15/21 03/10/22 amLODIPine BESYLATE [Norvasc] 2.5 mg PO DAILY 03/15/21 03/10/22 Imatinib Mesylate [Gleevec] 400 mg PO PC-SUPPER 04/25/21 03/10/22 Previous Rx's Medication Instructions Recorded traMADol HCl [Ultram] 50 mg PO Q6H PRN #12 tab 04/28/21 Allergies Allergy/AdvReac Type Severity Reaction Status Date / Time lisinopril Allergy Intermediate Swelling Verified 03/01/23 10:05 of tongue sulfamethoxazole Allergy Rash/Hives Verified 03/01/23 10:05 [From Bactrim] trimethoprim [From Bactrim] Allergy Rash/Hives Verified 03/01/23 10:05 Review of Systems ROS Statement: Those systems with pertinent positive or pertinent negative responses have been documented in the HPI. ROS Other: All systems not noted in ROS Statement are negative. Constitutional: Denies: fever Eyes: Denies: eye pain ENT: Denies: ear pain Respiratory: Reports: as per HPI. 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 ANEMIA. History of Any Multi-Drug Resistant Organisms: None Reported Past Surgical History: Appendectomy, Orthopedic Surgery, Prostate Surgery Additional Past Surgical History / Comment(s): PROSTATECTOMY, bone marrow bx twice, arthroscopy L knee, hydrocele repair, Past Anesthesia/Blood Transfusion Reactions: No Reported Reaction Additional Past Anesthesia/Blood Transfusion Reaction / Comment(s): Pt states he has never received blood. Past Psychological History: No Psychological Hx Reported Smoking Status: Current every day smoker Past Alcohol Use History: None Reported Past Drug Use History: None Reported - Past Family History Brother(s) Family Medical History: Cancer Sister(s) Family Medical History: Cancer Father Family Medical History: Cancer Additional Family Medical History / Comment(s): Father of LUNG cancer at a ge 66 yrs. Mother Additional Family Medical History / Comment(s): HEART PROBLEMS later in her life. at age 76 yrs. Daughter(s) Family Medical History: Cancer Additional Family Medical History / Comment(s): LEUKEMIA General Exam Limitations: no limitations General appearance: alert, in no apparent distress Head exam: Present: normocephalic Eye exam: Present: normal appearance Neck exam: Present: normal inspection Respiratory exam: Present: normal lung sounds bilaterally Cardiovascular Exam: Present: regular rate, normal rhythm Expanded Peripheral pulses: 2+: Radial (R), Radial (L), Dorsalis Pedis (R), Dorsalis Pedis (L) GI/Abdominal exam: Present: soft. Absent: tenderness Extremities exam: Present: normal inspection. Absent: pedal edema, calf tenderness Neurological exam: Present: alert Psychiatric exam: Present: normal affect, normal mood Skin exam: Present: normal color Course Vital Signs 03/01/23 03/01/23 03/01/23 10:03 10:26 11:38 Temperature 97.9 F Pulse Rate 79 68 65 Respiratory 20 18 16 Rate Blood Pressure 151/73 130/57 118/42 O2 Sat by Pulse 99 100 98 Oximetry EKG Findings - EKG Results: EKG: interpreted by ERMD (Sinus rhythm with a rate of 73, cannot completely rule out flutter however appears to be artifact. Left axis. Right bundle branch block. No acute ST change.) Medical Decision Making - Medical Decision Making Was pt. sent in by a medical professional or institution (, PA, DANCING INSTRUCTOR, urgent care, hospital, or custodial...) When possible be specific @ -No Did you speak to anyone other than the patient for history (EMS, parent, family, police, friend...)? What history was obtained from this source @ - is present and helps provide additional history Did you review nursing and triage notes (agree or disagree)? Why? @ -I reviewed and agree with nursing and triage notes Were old charts reviewed (outside hosp., previous admission, EMS record, old EKG, old radiological studies, urgent care reports/EKG's, custodial records)? Report findings @ -No old charts were reviewed Differential Diagnosis (chest pain, altered mental status, abdominal pain women, abdominal pain men, vaginal bleeding, weakness, fever, dyspnea, syncope, headache, dizziness, GI bleed, back pain, seizure, CVA, palpatations, mental health)? @ -Differential Chest Pain: Stable Angina, Unstable Angina, STEMI, NSTEMI Aortic Dissection, Pneumothorax, Musculoskeletal, Esophageal Spasm GERD, Cholecystitis, Pancreatitis, Zoster, this is not meant to be an all-inclusive list. EKG interpreted by me (3pts min.). @ -As above X-rays interpreted by me (1pt min.). @ -Chest x-ray shows no acute process CT interpreted by me (1pt min.). @ -None done U/S interpreted by me (1pt. min.). @ -None done What testing was considered but not performed or refused? (CT, X-rays, U/S, l abs)? Why? @ -None What meds were considered but not given or refused? Why? @ -Consider further cardiac medication however patient is extremely anemic. Did you discuss the management of the patient with other professionals ( professionals i.e. , ANISH, DANCING INSTRUCTOR, lab, RT, psych nurse, social work instructor, glaze maker, teacher, chief investment officer, oil field caser)? Give summary @ -Case was discussed with Dr. Navarro, who will admit cover Dr. Souphis. Was smoking cessation discussed for >3mins.? @ -No Was critical care preformed (if so, how long)? @ -32 minutes critical care time Were there social determinants of health that impacted care today? How? (Homelessness, low income, unemployed, alcoholism, drug addiction, transportati on, low edu. Level, literacy, decrease access to med. care, mcc, rehab)? @ -No Was there de-escalation of care discussed even if they declined (Discuss DNR or withdrawal of care, Hospice)? DNR status @ -No What co-morbidities impacted this encounter? (DM, HTN, Smoking, COPD, CAD, Cancer, CVA, ARF, Chemo, Hep., AIDS, mental health diagnosis, sleep apnea, morbid obesity)? @ -None Was patient admitted / discharged? Hospital course, mention meds given and route, prescriptions, significant lab abnormalities, going to OR and other pertinent info. @ -Patient will be admitted. Patient will need repeat cardiac evaluation however will need blood transfusion for severe anemia. Hemoccult ordered and may need GI consult. Undiagnosed new problem with uncertain prognosis? @ -No Drug Therapy requiring intensive monitoring for toxicity (Heparin, Nitro, Insulin, Cardizem)? @ -Patient will need monitoring with blood transfusion Were any procedures done? @ -No Diagnosis/symptom? @ -Anemia, symptomatic Acute, or Chronic, or Acute on Chronic? @ -Acute Uncomplicated (without systemic symptoms) or Complicated (systemic symptoms)? @ -Anemia is complicated by Acute chest pain and dyspnea Side effects of treatment? @ -No Exacerbation, Progression, or Severe Exacerbation? @ -No Poses a threat to life or bodily function? How? (Chest pain, [place], HI, pneumonia, PE, COPD, DKA, ARF, appy, cholecystitis, CVA, Diverticulitis, Homicidal, Suicidal, threat to staff... and all critical care pts) @ -Threat to life with significant anemia with associated cardiac symptoms - Lab Data Result diagrams: 03/01/23 10:22 03/01/23 10:22 Lab Results 03/01/23 03/01/23 03/01/23 Range/Units 10:22 10:22 10:22 WBC 10.9 H (3.8-10.6) k/uL RBC 1.69 L (4.30-5.90) m/uL Hgb 5.7 L* (13.0-17.5) gm/dL Hct 17.2 L* (39.0-53.0) % MCV 102.0 H (80.0-100.0) fL MCH 34.0 (25.0-35.0) pg MCHC 33.3 (31.0-37.0) g/dL RDW 15.0 (11.5-15.5) % Plt Count 216 (150-450) k/uL MPV 8.6 Neutrophils % 77 % Lymphocytes % 14 % Monocytes % 4 % Eosinophils % 2 % Basophils % 0 % Neutrophils # 8.4 H (1.3-7.7) k/uL Lymphocytes # 1.5 (1.0-4.8) k/uL Monocytes # 0.4 (0-1.0) k/uL Eosinophils # 0.3 (0-0.7) k/uL Basophils # 0.0 (0-0.2) k/uL Macrocytosis Slight PT 9.8 (9.0-12.0) sec INR 0.9 (<1.2) APTT 21.1 L (22.0-30.0) sec Sodium 140 (137-145) mmol/L Potassium 4.3 (3.5-5.1) mmol/L Chloride 111 H (98-107) mmol/L Carbon Dioxide 23 (22-30) mmol/L Anion Gap 6 mmol/L BUN 23 H (9-20) mg/dL Creatinine 1.34 H (0.66-1.25) mg/dL Est GFR (CKD-EPI)AfAm 62 (>60 ml/min/1.73 sqM) Est GFR (CKD-EPI)NonAf 54 (>60 ml/min/1.73 sqM) Glucose 109 H (74-99) mg/dL Calcium 8.5 (8.4-10.2) mg/dL Magnesium 2.3 (1.6-2.3) mg/dL Total Bilirubin 0.2 (0.2-1.3) mg/dL AST 32 (17-59) U/L ALT 33 (4-49) U/L Alkaline Phosphatase 52 (38-126) U/L Troponin I (0.000-0.034) ng/mL NT-Pro-B Natriuret Pep pg/mL Total Protein 5.8 L (6.3-8.2) g/dL Albumin 3.6 (3.5-5.0) g/dL 03/01/23 03/01/23 Range/Units 10:22 10:22 WBC (3.8-10.6) k/uL RBC (4.30-5.90) m/uL Hgb (13.0-17.5) gm/dL Hct (39.0-53.0) % MCV (80.0-100.0) fL MCH (25.0-35.0) pg MCHC (31.0-37.0) g/dL RDW (11.5-15.5) % Plt Count (150-450) k/uL MPV Neutrophils % % Lymphocytes % % Monocytes % % Eosinophils % % Basophils % % Neutrophils # (1.3-7.7) k/uL Lymphocytes # (1.0-4.8) k/uL Monocytes # (0-1.0) k/uL Eosinophils # (0-0.7) k/uL Basophils # (0-0.2) k/uL Macrocytosis PT (9.0-12.0) sec INR (<1.2) APTT (22.0-30.0) sec Sodium (137-145) mmol/L Potassium (3.5-5.1) mmol/L Chloride (98-107) mmol/L Carbon Dioxide (22-30) mmol/L Anion Gap mmol/L BUN (9-20) mg/dL Creatinine (0.66-1.25) mg/dL Est GFR (CKD-EPI)AfAm (>60 ml/min/1.73 sqM) Est GFR (CKD-EPI)NonAf (>60 ml/min/1.73 sqM) Glucose (74-99) mg/dL Calcium (8.4-10.2) mg/dL Magnesium (1.6-2.3) mg/dL Total Bilirubin (0.2-1.3) mg/dL AST (17-59) U/L ALT (4-49) U/L Alkaline Phosphatase (38-126) U/L Troponin I <0.012 (0.000-0.034) ng/mL NT-Pro-B Natriuret Pep 224 pg/mL Total Protein (6.3-8.2) g/dL Albumin (3.5-5.0) g/dL Disposition Clinical Impression: Chest pain, Symptomatic anemia Disposition: ADMITTED IP TO THIS HOSP Condition: Serious Is patient prescribed a controlled substance at d/c from ED?: No Referrals: [facility],Clinic [REFERRING] - 1-2 days Time of Disposition: 12:01
--- NOTE | 2023-03-01 10:33 | XR ---
EXAMINATION TYPE: XR chest 2V DATE OF EXAM: 03/01/2023 10:32 AM COMPARISON: Chest radiographs from 03/13/2016 TECHNIQUE: XR chest 2V Frontal and lateral views of the chest. CLINICAL INDICATION:Male, 67 years old with history of Chest Pain; FINDINGS: Lungs/Pleura: There is no evidence of pleural effusion, focal consolidation, or pneumothorax. Pulmonary vascularity: Unremarkable. Heart/mediastinum: Cardiomediastinal silhouette is unremarkable. Atherosclerotic calcifications are seen in the aorta. Musculoskeletal: No acute osseous pathology. IMPRESSION: No acute cardiopulmonary disease/process.
[2023-03-01 10:53] LABS: Albumin 3.6 g/dL (3.5-5.0); Calcium 8.5 mg/dL (8.4-10.2); Magnesium 2.3 mg/dL (1.6-2.3); Potassium 4.3 mmol/L (3.5-5.1); Total Bilirubin 0.2 mg/dL (0.2-1.3); Total Protein 5.8 g/dL (6.3-8.2)
[2023-03-01 10:54] LABS: Basophils % (A) 0 %; Eosinophils # (A) 0.3 k/uL (0-0.7); Eosinophils % (A) 2 %; Lymphocytes # (A) 1.5 k/uL (1.0-4.8); Lymphocytes % (A) 14 %; MCHC 33.3 g/dL (31.0-37.0); Macrocytosis Slight; Mean Platelet Volume 8.6; Monocytes # (A) 0.4 k/uL (0-1.0); Monocytes % (A) 4 %; Neutrophils # (A) 8.4 k/uL (1.3-7.7); Neutrophils % (A) 77 %; Platelet Count 216 k/uL (150-450); RBC 1.69 m/uL (4.30-5.90); WBC 10.9 k/uL (3.8-10.6)
[2023-03-01 10:57] LABS: HGB 5.7 gm/dL (13.0-17.5)
[2023-03-01 10:58] LABS: HCT 17.2 % (39.0-53.0)
[2023-03-01 11:01] LABS: INR 0.9 (<1.2); Prothrombin Time 9.8 sec (9.0-12.0)
[2023-03-01 11:02] LABS: Partial Thromboplastin Time 21.1 sec (22.0-30.0)
[2023-03-01] MEDS ORDERED: PANTOPRAZOLE 40 MG/10 ML VIAL IVP STA (11:55)
[2023-03-01] MEDS ORDERED: NALOXONE 0.4 MG/ML 1 ML VIAL IV PRN (12:02)
[2023-03-01] MEDS ORDERED: MORPHINE SULFATE 4 MG/ML SYRINGE IV PRN (12:02)
[2023-03-01] MEDS ORDERED: ACETAMINOPHEN TAB 325 MG TAB PO PRN (12:02)
[2023-03-01] MEDS: SODIUM CHLORIDE 0.9% 1,000 ML IV SCH (12:07)
[2023-03-01] MEDS ORDERED: MELATONIN 3 MG TABLET PO PRN (17:20)
[2023-03-01] MEDS ORDERED: ONDANSETRON 4 MG/2 ML VIAL IVP PRN (17:20)
[2023-03-01] MEDS ORDERED: LORazepam 0.5 MG TAB PO PRN (17:20)
[2023-03-01] MEDS ORDERED: CALCIUM CARBONATE 500 MG CHEWABLE PO PRN (17:20)
[2023-03-01] MEDS ORDERED: LACTULOSE 20 GM/30 ML CUP PO PRN (17:20)
--- NOTE | 2023-03-01 18:30 | P.GSCN ---
History of Present Illness Consult date: 03/01/23 Reason for Consult: GI bleed History of present illness: 67-year-old male presents to the hospital complaining of dyspnea on exertion. Patient says any activity would cause him to be very short of breath. Also described a heaviness of the chest. Found to be significantly anemic. Patient says he has had some intermittent black stools recently. Last episode of melena was 2 days ago. No abdominal pain. No history of similar events. No history of ulcer disease. Patient does not take blood thinners. He does take omeprazole. Patient does have complaints of chronic reflux. History of CML. GI has also been consulted. 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 ANEMIA. History of Any Multi-Drug Resistant Organisms: None Reported Past Surgical History: Appendectomy, Orthopedic Surgery, Prostate Surgery Additional Past Surgical History / Comment(s): PROSTATECTOMY, bone marrow bx twice, arthroscopy L knee, hydrocele repair, Past Anesthesia/Blood Transfusion Reactions: No Reported Reaction Additional Past Anesthesia/Blood Transfusion Reaction / Comm: Pt states he has never received blood. Past Psychological History: No Psychological Hx Reported Additional Psychological History / Comment(s): Pt resides with his spouse. He is independent. He uses no assistive device. He drives. Smoking Status: Current every day smoker Past Alcohol Use History: None Reported Additional Past Alcohol Use History / Comment(s): STARTED SMOKING AT 1971 but is down to about 4-5 cigarettes per day. Past Drug Use History: None Reported - Past Family History Brother(s) Family Medical History: Cancer Sister(s) Family Medical History: Cancer Father Family Medical History: Cancer Additional Family Medical History / Comment(s): Father of LUNG cancer at age 66 yrs. Mother Additional Family Medical History / Comment(s): HEART PROBLEMS later in her life. at age 76 yrs. Daughter(s) Family Medical History: Cancer Additional Family Medical History / Comment(s): LEUKEMIA Medications and Allergies Home Medications Medication Instructions Recorded Confirmed Type Omeprazole 20 mg PO DAILY 06/15/15 03/01/23 History Atorvastatin [Lipitor] 10 mg PO HS 03/15/21 03/01/23 History Cyclobenzaprine HCl 10 mg PO DAILY 03/15/21 03/01/23 History amLODIPine BESYLATE [Norvasc] 2.5 mg PO DAILY 03/15/21 03/01/23 History Imatinib Mesylate [Gleevec] 400 mg PO DAILY 04/25/21 03/01/23 History Cephalexin [Keflex] 500 mg PO QID 03/01/23 03/01/23 History Allergies Allergy/AdvReac Type Severity Reaction Status Date / Time lisinopril Allergy Intermediate Swelling Verified 03/01/23 12:08 of tongue sulfamethoxazole Allergy Rash/Hives Verified 03/01/23 12:08 [From Bactrim] trimethoprim [From Bactrim] Allergy Rash/Hives Verified 03/01/23 12:08 Surgical - Exam Vital Signs Temp Pulse Resp BP Pulse Ox 97.9 F 79 20 151/73 99 03/01/23 10:03 03/01/23 10:03 03/01/23 10:03 03/01/23 10:03 03/01/23 10:03 Physical exam: General: Well-developed, well-nourished HEENT: Normocephalic, sclerae nonicteric Abdomen: Nontender, nondistended Extremities: No edema Neuro: Alert and oriented Results - Labs 03/01/23 10:22 03/01/23 10:22 Abnormal Lab Results - Last 24 Hours (Table) 03/01/23 03/01/23 03/01/23 Range/Units 10:22 10:22 10:22 WBC 10.9 H (3.8-10.6) k/uL RBC 1.69 L (4.30-5.90) m/uL Hgb 5.7 L* (13.0-17.5) gm/dL Hct 17.2 L* (39.0-53.0) % MCV 102.0 H (80.0-100.0) fL Neutrophils # 8.4 H (1.3-7.7) k/uL APTT 21.1 L (22.0-30.0) sec Chloride 111 H (98-107) mmol/L BUN 23 H (9-20) mg/dL Creatinine 1.34 H (0.66-1.25) mg/dL Glucose 109 H (74-99) mg/dL Total Protein 5.8 L (6.3-8.2) g/dL Crossmatch 03/01/23 Range/Units 12:05 WBC (3.8-10.6) k/uL RBC (4.30-5.90) m/uL Hgb (13.0-17.5) gm/dL Hct (39.0-53.0) % MCV (80.0-100.0) fL Neutrophils # (1.3-7.7) k/uL APTT (22.0-30.0) sec Chloride (98-107) mmol/L BUN (9-20) mg/dL Creatinine (0.66-1.25) mg/dL Glucose (74-99) mg/dL Total Protein (6.3-8.2) g/dL Crossmatch See Detail Diabetes panel 03/01/23 Range/Units 10:22 Sodium 140 (137-145) mmol/L Potassium 4.3 (3.5-5.1) mmol/L Chloride 111 H (98-107) mmol/L Carbon Dioxide 23 (22-30) mmol/L BUN 23 H (9-20) mg/dL Creatinine 1.34 H (0.66-1.25) mg/dL Glucose 109 H (74-99) mg/dL Calcium 8.5 (8.4-10.2) mg/dL AST 32 (17-59) U/L ALT 33 (4-49) U/L Alkaline Phosphatase 52 (38-126) U/L Total Protein 5.8 L (6.3-8.2) g/dL Albumin 3.6 (3.5-5.0) g/dL Calcium panel 03/01/23 Range/Units 10:22 Calcium 8.5 (8.4-10.2) mg/dL Albumin 3.6 (3.5-5.0) g/dL Pituitary panel 03/01/23 Range/Units 10:22 Sodium 140 (137-145) mmol/L Potassium 4.3 (3.5-5.1) mmol/L Chloride 111 H (98-107) mmol/L Carbon Dioxide 23 (22-30) mmol/L BUN 23 H (9-20) mg/dL Creatinine 1.34 H (0.66-1.25) mg/dL Glucose 109 H (74-99) mg/dL Calcium 8.5 (8.4-10.2) mg/dL Adrenal panel 03/01/23 Range/Units 10:22 Sodium 140 (137-145) mmol/L Potassium 4.3 (3.5-5.1) mmol/L Chloride 111 H (98-107) mmol/L Carbon Dioxide 23 (22-30) mmol/L BUN 23 H (9-20) mg/dL Creatinine 1.34 H (0.66-1.25) mg/dL Glucose 109 H (74-99) mg/dL Calcium 8.5 (8.4-10.2) mg/dL Total Bilirubin 0.2 (0.2-1.3) mg/dL AST 32 (17-59) U/L ALT 33 (4-49) U/L Alkaline Phosphatase 52 (38-126) U/L Total Protein 5.8 L (6.3-8.2) g/dL Albumin 3.6 (3.5-5.0) g/dL Assessment and Plan (1) GI bleed Narrative/Plan: 67-year-old male with significant anemia and melanotic stools. Patient will require upper endoscopy. Will discuss with GI in a.m. Continue antiacids. Continue blood transfusion. Current Visit: Yes Status: Acute Code(s): K92.2 - GASTROINTESTINAL HEMORRHAGE, UNSPECIFIED SNOMED Code(s): 62434841
[2023-03-01] MEDS: ATORVASTATIN 10 MG TAB PO SCH (21:37)
--- NOTE | 2023-03-01 21:50 | P.HPIM ---
History of Present Illness H&P Date: 03/01/23 Chief Complaint: Chest pain This is a pleasant 67-year-old patient follows Dr. Hartman. Chronic stable medical conditions include GERD, hypertension, hyperlipidemia, obstructive sleep apnea uses CPAP, CML on oral chemotherapy, has had prostate cancer the past. Patient noticed black stools yesterday. Last 4 days patient been having depression this end of the chest with any little activity. Also radiation to the left arm. Also short of breath and dizzy. He's probably had dark stools for a bit longer than that. Hemoglobin the ER was 5.7. Patient was given 2 units of blood. Has GI service not available the hospital, surgery was consulted Review of systems: GEN.: Tired EYES: None HEENT: None NECK: None RESPIRATORY: As above CARDIOVASCULAR: As above GASTROINTESTINAL: Dark stools GENITOURINARY: None MUSCULOSKELETAL: Joint. LYMPHATICS: None HEMATOLOGICAL: None PSYCHIATRY: None NEUROLOGICAL: None Past medical history to include: GERD, hyperlipidemia, hypertension, renal disease, obstructive sleep apnea uses CPAP, CML currently on oral chemo, prostate cancer with surgery, kidney stones in the past Social history: . Started smoking age of [age] down to 4-5 cigarettes a day. No alcohol. Physical examination: VITAL SIGNS: 98.2, 60, 16, 133/61, 100% room air GENERAL: BMI 26.6, sitting in a patient with awake a bit tired. EYES: Pupils equal. Conjunctiva palel. HEENT: External appearance of nose and ears normal, oral cavity grossly normal. NECK: JVD not raised; masses not palpable. HEART: First and second heart sounds are normal; no edema. LUNGS: Respiratory rate normal; decreased breath sounds. ABDOMEN: Soft, nontender, liver spleen not palpable, no masses palpable. PSYCH: Alert and oriented x3; mood and affect normal. MUSCULOSKELETAL:No Clubbing/cyanosis;muscles-grossly intact. Some OA NEUROLOGICAL: Cranial nerves grossly intact; no facial asymmetry, power and sensation grossly intact. LYMPHATICS: No lymph nodes palpable in the axilla and neck INVESTIGATIONS, reviewed in the clinical context: White count 10.9 hemoglobin 5.7 platelets 216 sodium 140 potassium 4.3 BUN 23 creatinine 1.34 Troponin I less than 0.012, was less than 0.012, less than 0.012 Stool occult blood positive EKG tracing personally reviewed by me-sinus rhythm. Chest x-ray film personally reviewed by me-hyperinflation Assessment and plan: -Acute severe blood loss anemia. Patient been having black stools. Symptomatic. Patient received 2 units of blood. Has GI services not available [facility] consulted. -Unstable angina precipitated by severe anemia. Patient has no prior cardiac history. Troponin is negative. -CML for which patient is on oral chemotherapy Gleevec -GERD Omeprazole -Hyperlipidemia Lipitor -Essential hypertension Amlodipine -Obstructive sleep apnea uses CPAP Seen by Dr. Simental general surgery. Home medications resumed. Patient required EGD. Clear liquid diet. 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 ANEMIA. History of Any Multi-Drug Resistant Organisms: None Reported Past Surgical History: Appendectomy, Orthopedic Surgery, Prostate Surgery Additional Past Surgical History / Comment(s): PROSTATECTOMY, bone marrow bx twice, arthroscopy L knee, hydrocele repair, Past Anesthesia/Blood Transfusion Reactions: No Reported Reaction Additional Past Anesthesia/Blood Transfusion Reaction / Comment(s): Pt states he has never received blood. Past Psychological History: No Psychological Hx Reported Additional Psychological History / Comment(s): Pt resides with his spouse. He is independent. He uses no assistive device. He drives. Smoking Status: Current every day smoker Past Alcohol Use History: None Reported Additional Past Alcohol Use History / Comment(s): STARTED SMOKING AT 1971 but is down to about 4-5 cigarettes per day. Past Drug Use History: None Reported - Past Family History Brother(s) Family Medical History: Cancer Sister(s) Family Medical History: Cancer Father Family Medical History: Cancer Additional Family Medical History / Comment(s): Father of LUNG cancer at age 66 yrs. Mother Additional Family Medical History / Comment(s): HEART PROBLEMS later in her life. at age 76 yrs. Daughter(s) Family Medical History: Cancer Additional Family Medical History / Comment(s): LEUKEMIA Medications and Allergies Home Medications Medication Instructions Recorded Confirmed Type Omeprazole 20 mg PO DAILY 06/15/15 03/01/23 History Atorvastatin [Lipitor] 10 mg PO HS 03/15/21 03/01/23 History Cyclobenzaprine HCl 10 mg PO DAILY 03/15/21 03/01/23 History amLODIPine BESYLATE [Norvasc] 2.5 mg PO DAILY 03/15/21 03/01/23 History Imatinib Mesylate [Gleevec] 400 mg PO DAILY 04/25/21 03/01/23 History Cephalexin [Keflex] 500 mg PO QID 03/01/23 03/01/23 History Allergies Allergy/AdvReac Type Severity Reaction Status Date / Time lisinopril Allergy Intermediate Swelling Verified 03/01/23 12:08 of tongue sulfamethoxazole Allergy Rash/Hives Verified 03/01/23 12:08 [From Bactrim] trimethoprim [From Bactrim] Allergy Rash/Hives Verified 03/01/23 12:08 Physical Exam Vitals: Vital Signs Temp Pulse Resp BP Pulse Ox 03/01/23 15:31 97.8 F 66 18 116/61 03/01/23 15:11 98.2 F 60 16 133/61 98 03/01/23 15:01 97.9 F 72 16 130/59 99 03/01/23 14:00 72 16 135/84 99 03/01/23 11:38 65 16 118/42 98 03/01/23 10:26 68 18 130/57 100 03/01/23 10:03 97.9 F 79 20 151/73 99 Intake and Output 03/01/23 03/01/23 03/01/23 06:59 14:59 22:59 Intake Total 0 Balance 0 Intake: Blood Product 0 Rc As-1 Unit 0 [id number] Other: Weight 81.647 kg Results CBC & Chem 7: 03/01/23 10:22 03/01/23 10:22 Labs: Abnormal Lab Results - Last 24 Hours (Table) 03/01/23 03/01/23 03/01/23 Range/Units 10:22 10:22 10:22 WBC 10.9 H (3.8-10.6) k/uL RBC 1.69 L (4.30-5.90) m/uL Hgb 5.7 L* (13.0-17.5) gm/dL Hct 17.2 L* (39.0-53.0) % MCV 102.0 H (80.0-100.0) fL Neutrophils # 8.4 H (1.3-7.7) k/uL APTT 21.1 L (22.0-30.0) sec Chloride 111 H (98-107) mmol/L BUN 23 H (9-20) mg/dL Creatinine 1.34 H (0.66-1.25) mg/dL Glucose 109 H (74-99) mg/dL Total Protein 5.8 L (6.3-8.2) g/dL Crossmatch 03/01/23 Range/Units 12:05 WBC (3.8-10.6) k/uL RBC (4.30-5.90) m/uL Hgb (13.0-17.5) gm/dL Hct (39.0-53.0) % MCV (80.0-100.0) fL Neutrophils # (1.3-7.7) k/uL APTT (22.0-30.0) sec Chloride (98-107) mmol/L BUN (9-20) mg/dL Creatinine (0.66-1.25) mg/dL Glucose (74-99) mg/dL Total Protein (6.3-8.2) g/dL Crossmatch See Detail
[2023-03-02] MEDS ORDERED: NON FORMULARY DRUG (Imatinib Mesylate [Gleevec] 400 MG Tablet) PO SCH (09:00)
[2023-03-02 09:33] LABS: Anisocytosis Slight; Basophils % (A) 0 %; Eosinophils # (A) 0.3 k/uL (0-0.7); Eosinophils % (A) 3 %; Lymphocytes # (A) 0.9 k/uL (1.0-4.8); Lymphocytes % (A) 12 %; MCH 33.4 pg (25.0-35.0); MCHC 33.8 g/dL (31.0-37.0); MCV 98.8 fL (80.0-100.0); Macrocytosis Slight; Mean Platelet Volume 8.8; Monocytes # (A) 0.3 k/uL (0-1.0); Monocytes % (A) 4 %; Neutrophils # (A) 6.2 k/uL (1.3-7.7); Neutrophils % (A) 78 %; Platelet Count 190 k/uL (150-450); RBC 2.32 m/uL (4.30-5.90); RDW 16.6 % (11.5-15.5); WBC 7.9 k/uL (3.8-10.6)
[2023-03-02 09:46] LABS: Albumin 3.4 g/dL (3.5-5.0); Calcium 8.3 mg/dL (8.4-10.2); Potassium 4.3 mmol/L (3.5-5.1); Total Bilirubin 0.4 mg/dL (0.2-1.3); Total Protein 5.6 g/dL (6.3-8.2)
[2023-03-02 09:47] LABS: HGB 7.8 gm/dL (13.0-17.5)
[2023-03-02] MEDS: PANTOPRAZOLE 40 MG/10 ML VIAL IV SCH (09:54)
[2023-03-02] MEDS: amLODIPine 2.5 MG TAB PO SCH (09:55)
[2023-03-02] MEDS: CYCLOBENZAPRINE 10 MG TAB PO SCH ×3 (09:55→21:01)
[2023-03-02 13:39] VITALS: BMI 26.4
--- NOTE | 2023-03-02 15:48 | P.PN ---
Progress Note - Text Progress Note Date: 03/02/23 Chief Complaint: Chest pain This is a pleasant 67-year-old patient follows Dr. Hartman. Chronic stable medical conditions include GERD, hypertension, hyperlipidemia, obstructive sleep apnea uses CPAP, CML on oral chemotherapy, has had prostate cancer the past. Patient noticed black stools yesterday. Last 4 days patient been having depression this end of the chest with any little activity. Also radiation to the left arm. Also short of breath and dizzy. He's probably had dark stools for a bit longer than that. Hemoglobin the ER was 5.7. Patient was given 2 units of blood. Has GI service not available the hospital, surgery was consulted March 02: No further bleeding. Feels much better. Hemoglobin 7.8. Patient and family requested to be the surgeon. Await further input. Active Medications Acetaminophen (Acetaminophen Tab 325 Mg Tab) 650 mg PO Q6HR PRN PRN Reason: Mild Pain or Fever > 100.5 Amlodipine Besylate (Amlodipine 2.5 Mg Tab) 2.5 mg PO DAILY [facility] Last Admin: 03/02/23 09:55 Dose: 2.5 mg Atorvastatin Calcium (Atorvastatin 10 Mg Tab) 10 mg PO HS [facility] Last Admin: 03/01/23 21:37 Dose: 10 mg Calcium Carbonate/Glycine (Calcium Carbonate 500 Mg Chewable) 1,000 mg PO Q4HR PRN PRN Reason: Dyspepsia Cyclobenzaprine HCl (Cyclobenzaprine 10 Mg Tab) 10 mg PO HS [facility] Sodium Chloride (Saline 0.9%) 1,000 mls @ 75 mls/hr IV .[id number] [facility] Last Admin: 03/01/23 12:07 Dose: 75 mls/hr Lactulose (Lactulose 20 Gm/30 Ml Cup) 20 gm PO DAILY PRN PRN Reason: Constipation Lorazepam (Lorazepam 0.5 Mg Tab) 0.5 mg PO Q6HR PRN PRN Reason: Anxiety Melatonin (Melatonin 3 Mg Tablet) 3 mg PO HS PRN PRN Reason: Insomnia Morphine Sulfate (Morphine Sulfate 4 Mg/Ml Syringe) 4 mg IV Q4HR PRN PRN Reason: Severe Pain (Scale 7 to 10) Naloxone HCl (Naloxone 0.4 Mg/Ml 1 Ml Vial) 0.2 mg IV Q2M PRN PRN Reason: Opioid Reversal Ondansetron HCl (Ondansetron 4 Mg/2 Ml Vial) 4 mg IVP Q8HR PRN PRN Reason: Nausea And Vomiting Pantoprazole Sodium (Pantoprazole 40 Mg/10 Ml Vial) 40 mg IV DAILY [facility] Last Admin: 03/02/23 09:54 Dose: 40 mg Past medical history to include: GERD, hyperlipidemia, hypertension, renal disease, obstructive sleep apnea uses CPAP, CML currently on oral chemo, prostate cancer with surgery, kidney stones in the past Social history: . Started smoking age of 1973 down to 4-5 cigarettes a day. No alcohol. Physical examination: VITAL SIGNS: 97.4, 70, 18, 139/60, 100% room air GENERAL: BMI 26.6, reclining in bed, awake comfortable EYES: Pupils equal. Conjunctiva palel. HEENT: External appearance of nose and ears normal, oral cavity grossly normal. NECK: JVD not raised; masses not palpable. HEART: First and second heart sounds are normal; no edema. LUNGS: Respiratory rate normal; decreased breath sounds. ABDOMEN: Soft, nontender, liver spleen not palpable, no masses palpable. PSYCH: Alert and oriented x3; mood and affect normal. MUSCULOSKELETAL:No Clubbing/cyanosis;muscles-grossly intact. Some OA INVESTIGATIONS, reviewed in the clinical context: March 02: White count 7.9 hemoglobin 7.8 platelets 90 potassium 4.3 creatinine 1.23 White count 10.9 hemoglobin 5.7 platelets 216 sodium 140 potassium 4.3 BUN 23 creatinine 1.34 Troponin I less than 0.012, was less than 0.012, less than 0.012 Stool occult blood positive EKG tracing personally reviewed by me-sinus rhythm. Chest x-ray film personally reviewed by me-hyperinflation Assessment and plan: -Acute severe blood loss anemia. Patient been having black stools. Symptomatic. Patient received 2 units of blood. Has GI services not available hospital, family requested Dr Wadsworth from surgery to follow -Unstable angina precipitated by severe anemia. Patient has no prior cardiac history. Troponin is negative.: Better -CML for which patient is on oral chemotherapy Gleevec -GERD Omeprazole -Hyperlipidemia Lipitor -Essential hypertension Amlodipine -Obstructive sleep apnea uses CPAP Discussed with patient.
--- NOTE | 2023-03-02 16:39 | P.CONS ---
History of Present Illness - Reason for Consult Consult date: 03/02/23 anemia, hx CML Requesting physician: Lenard Navarro - Chief Complaint SOB - History of Present Illness Patient is a 67-year-old male sniffed a history of CML and ESTELLA. He is a patient of Dr. Onofre Greer. He is currently on Gleevec daily. BCRABL in June 2022 was negative. He also has followed up with us in the past for iron deficiency anemia. Last iron infusion was in February 2022 Patient presented to the ER with complaints of shortness of breath and chest heaviness over the last 2-3 days. He also reports noting melena 2 days ago. He denies history of GI bleed. He is on no blood thinners. He states that he does not take NSAIDs regularly. denies abdominal pain, nausea, vomiting, diarrhea,. Denies fever and chills. Last colonoscopy was 3-4 years ago which was normal per the patient. No history of EGD. Initial labs showed hemoglobin of 5.7, hematocrit 17.2, platelets 216,000. He received 2 units of PRBCs. Hemoglobin today 7.8 with an appropriate response. Coags normal. He had a positive stool occult. Oxygen saturation 99% on room air. GI and surgery have been consulted. EGD is planned. 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 ANEMIA. History of Any Multi-Drug Resistant Organisms: None Reported Past Surgical History: Appendectomy, Orthopedic Surgery, Prostate Surgery Additional Past Surgical History / Comment(s): PROSTATECTOMY, bone marrow bx twice, arthroscopy L knee, hydrocele repair, Past Anesthesia/Blood Transfusion Reactions: No Reported Reaction Additional Past Anesthesia/Blood Transfusion Reaction / Comm: Pt states he has never received blood. Past Psychological History: No Psychological Hx Reported Additional Psychological History / Comment(s): Pt resides with his spouse. He is independent. He uses no assistive device. He drives. Smoking Status: Current every day smoker Past Alcohol Use History: None Reported Additional Past Alcohol Use History / Comment(s): STARTED SMOKING AT 1971 but is down to about 4-5 cigarettes per day. Past Drug Use History: None Reported - Past Family History Brother(s) Family Medical History: Cancer Sister(s) Family Medical History: Cancer Father Family Medical History: Cancer Additional Family Medical History / Comment(s): Father of LUNG cancer at age 66 yrs. Mother Additional Family Medical History / Comment(s): HEART PROBLEMS later in her life. at age 76 yrs. Daughter(s) Family Medical History: Cancer Additional Family Medical History / Comment(s): LEUKEMIA Medications and Allergies Home Medications Medication Instructions Recorded Confirmed Type Omeprazole 20 mg PO DAILY 06/15/15 03/01/23 History Atorvastatin [Lipitor] 10 mg PO HS 03/15/21 03/01/23 History Cyclobenzaprine HCl 10 mg PO DAILY 03/15/21 03/01/23 History amLODIPine BESYLATE [Norvasc] 2.5 mg PO DAILY 03/15/21 03/01/23 History Imatinib Mesylate [Gleevec] 400 mg PO DAILY 04/25/21 03/01/23 History Cephalexin [Keflex] 500 mg PO QID 03/01/23 03/01/23 History Allergies Allergy/AdvReac Type Severity Reaction Status Date / Time lisinopril Allergy Intermediate Swelling Verified 03/01/23 12:08 of tongue sulfamethoxazole Allergy Rash/Hives Verified 03/01/23 12:08 [From Bactrim] trimethoprim [From Bactrim] Allergy Rash/Hives Verified 03/01/23 12:08 Physical Exam Vitals: Vital Signs Temp Pulse Pulse Resp BP BP Pulse Ox 03/02/23 14:00 70 18 03/02/23 12:00 97.4 F L 70 18 139/60 100 03/02/23 08:16 98 03/02/23 08:00 98.9 F 64 18 140/60 100 03/02/23 04:00 98.2 F 70 18 129/75 99 03/02/23 02:00 74 18 03/02/23 01:24 97.5 F L 66 18 135/71 03/02/23 00:49 98.0 F 69 18 118/73 99 03/01/23 21:52 98.4 F 75 18 118/56 03/01/23 21:32 99.0 F 75 16 115/63 98 03/01/23 20:00 74 18 03/01/23 18:00 98.0 F 74 18 143/65 100 03/01/23 16:30 98.0 F 74 18 143/65 100 Intake and Output 03/02/23 03/02/23 03/02/23 06:59 14:59 22:59 Intake Total 310 Balance 310 Intake: Blood Product 310 Rc As-1 Unit 310 [id number] Other: # Voids 1 1 Weight 81 kg 81 kg - Constitutional General appearance: average body habitus, no acute distress - EENT Eyes: anicteric sclerae, EOMI - Respiratory Respiratory: bilateral: CTA - Cardiovascular Rhythm: regular Heart sounds: normal: S1, S2 Abnormal Heart Sounds: no systolic murmur, no diastolic murmur, no rub, no S3 Gallop, no S4 Gallop, no click, no other leg Peripheral Edema: bilateral: None - Gastrointestinal General gastrointestinal: soft, no tenderness - Integumentary Integumentary: pale - Neurologic Neurologic: CNII-XII intact - Musculoskeletal Musculoskeletal: strength equal bilaterally - Psychiatric Psychiatric: A&O x's 3, appropriate affect, intact judgment & insight Results CBC & Chem 7: 03/02/23 08:26 03/02/23 08:26 Labs: Abnormal Lab Results - Last 24 Hours (Table) 03/01/23 03/02/23 03/02/23 Range/Units 12:05 08:26 08:26 RBC 2.32 L (4.30-5.90) m/uL Hgb 7.8 L D (13.0-17.5) gm/dL Hct 23.0 L (39.0-53.0) % RDW 16.6 H (11.5-15.5) % Lymphocytes # 0.9 L (1.0-4.8) k/uL Chloride 111 H (98-107) mmol/L Glucose 116 H (74-99) mg/dL Calcium 8.3 L (8.4-10.2) mg/dL Total Protein 5.6 L (6.3-8.2) g/dL Albumin 3.4 L (3.5-5.0) g/dL Crossmatch See Detail Chest x-ray: report reviewed Assessment and Plan (1) Symptomatic anemia Current Visit: Yes Status: Acute Code(s): D64.9 - ANEMIA, UNSPECIFIED SNOMED Code(s): 444044718 Plan: Anemia: -Hx ESTELLA. Last iron infusion was in February 2022. -Initial labs showed hemoglobin of 5.7, hematocrit 17.2, platelets 216,000. He received 2 units of PRBCs. Hemoglobin today 7.8 with an appropriate response. Positive stool occult. -anemia workup ordered, will add IV iron if consistent with iron deficiency -GI and surgery have been consulted. EGD is planned. -Anemia likely related to acute GI bleed -Will continue to monitor counts. Please transfuse for hemoglobin less than 7 or if symptomatic. CML: -Will hold Gleevec, as possible adverse effect is anemia and hemorrhage -BCRABL in June 2022 was negative. -Will schedule clinic f/u upon discharge attests: I have performed a H&P and developed impression and plan of care for patient, discussed with dictator. I agree with dictated note, documented as a scribe
[2023-03-02 16:44] LABS: % Iron Saturation 22.22 (15.00-50.00); Ferritin 41.5 ng/mL (22.0-322.0)
[2023-03-02] MEDS ORDERED: IMATINIB MESYLATE 400 MG PO SCH (17:30)
--- NOTE | 2023-03-02 19:45 | P.GSCN ---
History of Present Illness Consult date: 03/02/23 Reason for Consult: possible GI bleed, anemia, melanotic stools History of present illness: Presented to ER with complaints of dyspnea on exertion & heaviness in his chest. Hgb was noted to be 5.3. He admitted to some melanotic stools at home. Denies abdominal pain. Denies any previous similar symptoms. Has history of GERD on PRN omeprazole but denies ulcers. No blood thinners. 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 Never had an EGD in past; last colonoscopy was 3-4 years ago & nothing significant was noted. NPO since ER visit. Hasn't had BM while in the hospital. Hgb recovered to 7.8 after 2u pRBCs. SBP 140s, on RA, no tachycardia. Review of Systems - Constitutional Reports as per HPI, Denies anorexia - Cardiovascular Reports as per HPI, Reports dyspnea on exertion, Denies irregular heart beat - Respiratory Reports as per HPI, Reports dyspnea, Denies home oxygen - Gastrointestinal Reports as per HPI, Reports melena, Denies abdominal pain - Genitourinary Reports as per HPI - Musculoskeletal Reports as per HPI - Integumentary Reports as per HPI - Neurological Reports as per HPI - Psychiatric Reports as per HPI - Endocrine Reports as per HPI - Hematologic/Lymphatic Reports as per HPI - Allergic/Immunologic Reports as per HPI Past Medical History Past Medical History: Blood Disorder, Cancer, GERD/Reflux, Hyperlipidemia, Hypertension, Renal Disease, Sleep Apnea/CPAP/BIPAP Additional Past Medical History / Comment(s): hx sepsis-Positive blood cultures once before while in [place]-never found source, 2009 CML current tx with oral chemo, prostate cancer tx with surgery, JANE uses cpap, kidney stones x 3-passed on his own. ANEMIA. History of Any Multi-Drug Resistant Organisms: None Reported Past Surgical History: Appendectomy, Orthopedic Surgery, Prostate Surgery Additional Past Surgical History / Comment(s): PROSTATECTOMY, bone marrow bx twice, arthroscopy L knee, hydrocele repair, Past Anesthesia/Blood Transfusion Reactions: No Reported Reaction Additional Past Anesthesia/Blood Transfusion Reaction / Comm: Pt states he has never received blood. Past Psychological History: No Psychological Hx Reported Additional Psychological History / Comment(s): Pt resides with his spouse. He is independent. He uses no assistive device. He drives. Smoking Status: Current every day smoker Past Alcohol Use History: None Reported Additional Past Alcohol Use History / Comment(s): STARTED SMOKING AT 1971 but is down to about 4-5 cigarettes per day. Past Drug Use History: None Reported - Past Family History Brother(s) Family Medical History: Cancer Sister(s) Family Medical History: Cancer Father Family Medical History: Cancer Additional Family Medical History / Comment(s): Father of LUNG cancer at age 66 yrs. Mother Additional Family Medical History / Comment(s): HEART PROBLEMS later in her life. at age 76 yrs. Daughter(s) Family Medical History: Cancer Additional Family Medical History / Comment(s): LEUKEMIA Medications and Allergies Home Medications Medication Instructions Recorded Confirmed Type Omeprazole 20 mg PO DAILY 06/15/15 03/01/23 History Atorvastatin [Lipitor] 10 mg PO HS 03/15/21 03/01/23 History Cyclobenzaprine HCl 10 mg PO DAILY 03/15/21 03/01/23 History amLODIPine BESYLATE [Norvasc] 2.5 mg PO DAILY 03/15/21 03/01/23 History Imatinib Mesylate [Gleevec] 400 mg PO DAILY 04/25/21 03/01/23 History Cephalexin [Keflex] 500 mg PO QID 03/01/23 03/01/23 History Allergies Allergy/AdvReac Type Severity Reaction Status Date / Time lisinopril Allergy Intermediate Swelling Verified 03/01/23 12:08 of tongue sulfamethoxazole Allergy Rash/Hives Verified 03/01/23 12:08 [From Bactrim] trimethoprim [From Bactrim] Allergy Rash/Hives Verified 03/01/23 12:08 Surgical - Exam Vital Signs Temp Pulse Resp BP Pulse Ox 97.9 F 79 20 151/73 99 03/01/23 10:03 03/01/23 10:03 03/01/23 10:03 03/01/23 10:03 03/01/23 10:03 - General well developed, well nourished, no distress - Eyes no icteric - ENT normal mucosa, no hearing loss - Neck supple - Respiratory normal expansion, normal respiratory effort, clear to auscultation - Cardiovascular Rhythm: regular Abnormal Heart Sounds: no systolic murmur, no diastolic murmur - Abdomen Abdomen: soft, non tender, no guarding, no rebound, no distended - Neurologic no gross deficits - Psychiatric alert & oriented, cooperative, appropriate insight & judgement Results - Labs 03/02/23 08:26 03/02/23 08:26 Abnormal Lab Results - Last 24 Hours (Table) 03/01/23 03/02/23 03/02/23 Range/Units 12:05 08:26 08:26 RBC 2.32 L (4.30-5.90) m/uL Hgb 7.8 L D (13.0-17.5) gm/dL Hct 23.0 L (39.0-53.0) % RDW 16.6 H (11.5-15.5) % Lymphocytes # 0.9 L (1.0-4.8) k/uL Chloride 111 H (98-107) mmol/L Glucose 116 H (74-99) mg/dL Calcium 8.3 L (8.4-10.2) mg/dL Total Protein 5.6 L (6.3-8.2) g/dL Albumin 3.4 L (3.5-5.0) g/dL Crossmatch See Detail Diabetes panel 03/02/23 Range/Units 08:26 Sodium 141 (137-145) mmol/L Potassium 4.3 (3.5-5.1) mmol/L Chloride 111 H (98-107) mmol/L Carbon Dioxide 26 (22-30) mmol/L BUN 16 (9-20) mg/dL Creatinine 1.23 (0.66-1.25) mg/dL Glucose 116 H (74-99) mg/dL Calcium 8.3 L (8.4-10.2) mg/dL AST 31 (17-59) U/L ALT 29 (4-49) U/L Alkaline Phosphatase 47 (38-126) U/L Total Protein 5.6 L (6.3-8.2) g/dL Albumin 3.4 L (3.5-5.0) g/dL Calcium panel 03/02/23 Range/Units 08:26 Calcium 8.3 L (8.4-10.2) mg/dL Albumin 3.4 L (3.5-5.0) g/dL Pituitary panel 03/02/23 Range/Units 08:26 Sodium 141 (137-145) mmol/L Potassium 4.3 (3.5-5.1) mmol/L Chloride 111 H (98-107) mmol/L Carbon Dioxide 26 (22-30) mmol/L BUN 16 (9-20) mg/dL Creatinine 1.23 (0.66-1.25) mg/dL Glucose 116 H (74-99) mg/dL Calcium 8.3 L (8.4-10.2) mg/dL Adrenal panel 03/02/23 Range/Units 08:26 Sodium 141 (137-145) mmol/L Potassium 4.3 (3.5-5.1) mmol/L Chloride 111 H (98-107) mmol/L Carbon Dioxide 26 (22-30) mmol/L BUN 16 (9-20) mg/dL Creatinine 1.23 (0.66-1.25) mg/dL Glucose 116 H (74-99) mg/dL Calcium 8.3 L (8.4-10.2) mg/dL Total Bilirubin 0.4 (0.2-1.3) mg/dL AST 31 (17-59) U/L ALT 29 (4-49) U/L Alkaline Phosphatase 47 (38-126) U/L Total Protein 5.6 L (6.3-8.2) g/dL Albumin 3.4 L (3.5-5.0) g/dL Assessment and Plan Assessment: melanotic stools symptomatic anemia, resolved GI bleed, suspect upper source Plan: OK for clears Trend Hgb, transfuse as appropriate Plan for EGD on Sunday at 8am - NPO at [place] on Sunday If bleed becomes persistent with changes in HR or BP, will need transfer to higher level of care for IR angiography or tRBC scan. Thank you for this consultation & allowing me to participate in the care of your patient. Time with Patient: Less than 30
[2023-03-02] MEDS: ATORVASTATIN 10 MG TAB PO SCH (21:01)
[2023-03-02] MEDS: SODIUM CHLORIDE 0.9% 1,000 ML IV SCH ×2 (21:01→21:02)
[2023-03-03] MEDS: SODIUM CHLORIDE 0.9% 1,000 ML IV SCH ×2 (07:31→19:51)
[2023-03-03] MEDS: PANTOPRAZOLE 40 MG/10 ML VIAL IV SCH (08:14)
[2023-03-03] MEDS: amLODIPine 2.5 MG TAB PO SCH (08:14)
[2023-03-03 08:16] LABS: Anisocytosis Slight; Basophils % (A) 0 %; Eosinophils # (A) 0.2 k/uL (0-0.7); Eosinophils % (A) 3 %; HCT 23.4 % (39.0-53.0); HGB 7.9 gm/dL (13.0-17.5); Lymphocytes # (A) 0.8 k/uL (1.0-4.8); Lymphocytes % (A) 12 %; MCH 33.7 pg (25.0-35.0); MCHC 33.5 g/dL (31.0-37.0); MCV 100.5 fL (80.0-100.0); Macrocytosis Slight; Monocytes # (A) 0.3 k/uL (0-1.0); Monocytes % (A) 5 %; Neutrophils # (A) 5.1 k/uL (1.3-7.7); Neutrophils % (A) 77 %; Platelet Count 182 k/uL (150-450); RBC 2.33 m/uL (4.30-5.90); RDW 16.2 % (11.5-15.5); WBC 6.6 k/uL (3.8-10.6)
[2023-03-03] MEDS: SODIUM FERRIC GLUCONAT-SUCROSE 125 MG in SODIUM CHLORIDE 0.9% 100 ML IVPB SCH (10:21)
--- NOTE | 2023-03-03 11:19 | P.CRDCN ---
History of Present Illness Consult date: 03/03/23 History of present illness: History of Present Illness: The patient is a 67-year-old male with a history of hypertension, hyperlipidemia, chronic tobacco use who presented with symptoms of progressive fatigue, chest pressure and dyspnea as well as dizziness over the last few days, he noted black stool and was noted to be severely anemic with heme-positive stool. He was transfused and feels much better at this time. He has no prior history of obstructive CAD. He had an MPI in 2013 that showed no evidence of stress-induced ischemia and his systolic function was normal at that time. He has a known history of CML, has been stable. He denies any nausea or vomiting or abdominal pain. He denies any palpitations. He has no clear PND, orthopnea or peripheral edema. He has no arrhythmia on the monitor. He is scheduled to undergo endoscopy tomorrow. Medications: Lipitor 10 mg daily, amlodipine 2.5 mg daily, omeprazole 20 mg daily, Gleevec Review of Systems: Respiratory:. Dyspnea on exertion recently but no recent cough or wheezing GI: No nausea or vomiting . No history of peptic ulcer disease. He had dark stool the last few days. : No hematuria or dysuria. Nervous System: No stroke or seizure. Physical Examination: 67-year-old male, alert and oriented no apparent distress,Blood pressure 130/59, Heart rate 70 Head: Normocephalic. Eyes: Sclerae nonicteric. Neck: Good carotid upstroke, no bruit, no jugular venous distention. Lungs: Clear to auscultation. Heart: Regular rate and rhythm, S1-S2, no S3, no rub. Systolic ejection murmur. Abdomen: Soft nontender, positive bowel sounds no organomegaly. Extremities: No edema, intact distal pulses. Labs: Hemoglobin on admission 5.7, BUN 23, creatinine 1.34, troponin less than 0.012, Hemoccult-positive. His BUN and creatinine yesterday 16 and 1.23 and his hemoglobin is up to 7.9. Chest x-ray with no acute infiltrate EKG: Sinus mechanism rate of 73 with RSR prime Impression: 1. Anemia with GI bleeding, workup in progress, scheduled for endoscopy tomorrow 2. Chest discomfort secondary to the anemia, no evidence of acute coronary syndrome 3. History of hypertension 4. History of hyperlipidemia 5. Chronic tobacco use 6. History of CML Plan: 1. The chest discomfort does not appear to be related to acute coronary syndrome and it is exacerbated by the anemia 2. Obtain an echocardiogram with Doppler 3. Continue other treatment 4. Smoking cessation 5. Awaiting workup of anemia and GI bleeding 6. Depending on his progress further recommendations will be made, thank you for this consult we will follow with you. Past Medical History Past Medical History: Blood Disorder, Cancer, GERD/Reflux, Hyperlipidemia, Hypertension, Renal Disease, Sleep Apnea/CPAP/BIPAP Additional Past Medical History / Comment(s): hx sepsis-Positive blood cultures once before while in [place]-never found source, 2009 CML current tx with oral chemo, prostate cancer tx with surgery, JANE uses cpap, kidney stones x 3-passed on his own. ANEMIA. History of Any Multi-Drug Resistant Organisms: None Reported Past Surgical History: Appendectomy, Orthopedic Surgery, Prostate Surgery Additional Past Surgical History / Comment(s): PROSTATECTOMY, bone marrow bx t wice, arthroscopy L knee, hydrocele repair, Past Anesthesia/Blood Transfusion Reactions: No Reported Reaction Additional Past Anesthesia/Blood Transfusion Reaction / Comment(s): Pt states he has never received blood. Past Psychological History: No Psychological Hx Reported Additional Psychological History / Comment(s): Pt resides with his spouse. He is independent. He uses no assistive device. He drives. Smoking Status: Current every day smoker Past Alcohol Use History: None Reported Additional Past Alcohol Use History / Comment(s): STARTED SMOKING AT 1971 but is down to about 4-5 cigarettes per day. Past Drug Use History: None Reported - Past Family History Brother(s) Family Medical History: Cancer Sister(s) Family Medical History: Cancer Father Family Medical History: Cancer Additional Family Medical History / Comment(s): Father of LUNG cancer at age 66 yrs. Mother Additional Family Medical History / Comment(s): HEART PROBLEMS later in her life. at age 76 yrs. Daughter(s) Family Medical History: Cancer Additional Family Medical History / Comment(s): LEUKEMIA Medications and Allergies Home Medications Medication Instructions Recorded Confirmed Type Omeprazole 20 mg PO DAILY 06/15/15 03/01/23 History Atorvastatin [Lipitor] 10 mg PO HS 03/15/21 03/01/23 History Cyclobenzaprine HCl 10 mg PO DAILY 03/15/21 03/01/23 History amLODIPine BESYLATE [Norvasc] 2.5 mg PO DAILY 03/15/21 03/01/23 History Imatinib Mesylate [Gleevec] 400 mg PO DAILY 04/25/21 03/01/23 History Cephalexin [Keflex] 500 mg PO QID 03/01/23 03/01/23 History Allergies Allergy/AdvReac Type Severity Reaction Status Date / Time lisinopril Allergy Intermediate Swelling Verified 03/01/23 12:08 of tongue sulfamethoxazole Allergy Rash/Hives Verified 03/01/23 12:08 [From Bactrim] trimethoprim [From Bactrim] Allergy Rash/Hives Verified 03/01/23 12:08 Physical Exam Vitals: Vital Signs Temp Pulse Resp BP Pulse Ox 03/03/23 08:13 97.6 F 68 16 145/70 100 03/03/23 07:43 68 16 03/03/23 04:00 62 16 133/62 98 03/03/23 02:00 64 18 03/03/23 00:00 97.9 F 64 18 121/68 98 03/02/23 20:00 98.4 F 65 16 128/69 99 03/02/23 16:00 98.5 F 68 18 137/67 97 03/02/23 14:00 70 18 03/02/23 12:00 97.4 F L 70 18 139/60 100 Intake and Output 03/02/23 03/03/23 03/03/23 22:59 06:59 14:59 Intake Total 240 Balance 240 Intake: Oral 240 Other: Voiding Method Toilet # Voids 2 1 Results 03/03/23 07:57 03/02/23 08:26 CBC 03/03/23 Range/Units 07:57 WBC 6.6 (3.8-10.6) k/uL RBC 2.33 L (4.30-5.90) m/uL Hgb 7.9 L (13.0-17.5) gm/dL Hct 23.4 L (39.0-53.0) % Plt Count 182 (150-450) k/uL Current Medications Generic Name Dose Route Start Last Admin Trade Name Freq PRN Reason Stop Dose Admin Acetaminophen 650 mg 03/01/23 12:02 Acetaminophen Tab 325 Mg Tab PO Q6HR PRN Mild Pain or Fever > 100.5 Amlodipine Besylate 2.5 mg 03/02/23 09:00 03/03/23 08:14 Amlodipine 2.5 Mg Tab PO 2.5 mg DAILY CHRISTINA Administration Atorvastatin Calcium 10 mg 03/01/23 21:00 03/02/23 21:01 Atorvastatin 10 Mg Tab PO 10 mg HS CHRISTINA Administration Calcium Carbonate/Glycine 1,000 mg 03/01/23 17:20 Calcium Carbonate 500 Mg Chewable PO Q4HR PRN Dyspepsia Cyclobenzaprine HCl 10 mg 03/02/23 21:00 03/02/23 21:01 Cyclobenzaprine 10 Mg Tab PO 10 mg HS CHRISTINA Administration Sodium Chloride 1,000 mls @ 75 mls/hr 03/01/23 12:15 03/03/23 07:31 Saline 0.9% IV Not Given .[id number] CHRISTINA Ferric Sodium Gluconate 125 mg 110 mls @ 100 mls/hr 03/03/23 10:00 03/03/23 10:21 / Sodium Chloride IVPB 03/05/23 10:05 100 mls/hr DAILY CHRISTINA Administration Lactulose 20 gm 03/01/23 17:20 Lactulose 20 Gm/30 Ml Cup PO DAILY PRN Constipation Lorazepam 0.5 mg 03/01/23 17:20 Lorazepam 0.5 Mg Tab PO Q6HR PRN Anxiety Melatonin 3 mg 03/01/23 17:20 Melatonin 3 Mg Tablet PO HS PRN Insomnia Morphine Sulfate 4 mg 03/01/23 12:02 Morphine Sulfate 4 Mg/Ml Syringe IV Q4HR PRN Severe Pain (Scale 7 to 10) Naloxone HCl 0.2 mg 03/01/23 12:02 Naloxone 0.4 Mg/Ml 1 Ml Vial IV Q2M PRN Opioid Reversal Ondansetron HCl 4 mg 03/01/23 17:20 Ondansetron 4 Mg/2 Ml Vial IVP Q8HR PRN Nausea And Vomiting Pantoprazole Sodium 40 mg 03/02/23 09:00 03/03/23 08:14 Pantoprazole 40 Mg/10 Ml Vial IV 40 mg DAILY CHRISTINA Administration Intake and Output 03/02/23 03/03/23 03/03/23 22:59 06:59 14:59 Intake Total 240 Balance 240 Intake: Oral 240 Other: Voiding Method Toilet # Voids 2 1 03/03/23 07:57 03/02/23 08:26
--- NOTE | 2023-03-03 12:00 | P.PN ---
Subjective Progress Note Date: 03/03/23 Principal diagnosis: Acute GI bleed, acute blood loss anemia, history of prostate cancer and CML Patient seen and examined at bedside. Has been tolerating clear liquids. No bowel movement past 24 hours, melena seems to have resolved. Symptoms of chest discomfort of similarly resolved. Serial troponins nonelevated. Presently receiving an IV iron infusion. No complaints of abdominal discomfort. Admits to some chronic intermittent breakthrough symptoms of heartburn in spite of omeprazole. Has never been diagnosed with peptic ulcer disease or H. pylori infection. CBC shows stable hemoglobin at around 8. Has a hemodynamically stable and normotensive appearance. Objective - Vital Signs Vital signs: Vital Signs Temp 97.7 F 03/03/23 11:26 Pulse 62 03/03/23 11:26 Resp 16 03/03/23 11:26 BP 143/67 03/03/23 11:26 Pulse Ox 97 03/03/23 11:26 FiO2 Intake & Output 03/02/23 03/03/23 03/03/23 18:59 06:59 18:59 Intake Total 240 Balance 240 Weight 81 kg Intake: Oral 240 Other: Voiding Method Toilet # Voids 2 1 - Constitutional General appearance: Present: average body habitus - EENT Eyes: Present: EOMI, PERRLA ENT: Present: NA/AT - Respiratory Respiratory: bilateral: CTA - Cardiovascular Rhythm: regular - Gastrointestinal Gastrointestinal Comment(s): Abdomen soft nontender palpation, no guarding rebound or distention. - Neurologic Neurologic: Present: CNII-XII intact - Psychiatric Psychiatric: Present: A&O x's 3 - Labs CBC & Chem 7: 03/03/23 07:57 03/02/23 08:26 Labs: Abnormal Lab Results - Last 24 Hours (Table) 03/03/23 Range/Units 07:57 RBC 2.33 L (4.30-5.90) m/uL Hgb 7.9 L (13.0-17.5) gm/dL Hct 23.4 L (39.0-53.0) % MCV 100.5 H (80.0-100.0) fL RDW 16.2 H (11.5-15.5) % Lymphocytes # 0.8 L (1.0-4.8) k/uL Assessment and Plan Assessment: 67-year-old gentleman with clinical history and presentation most consistent with an acute upper GI bleed. Significant acute blood loss anemia on presentation, hemoglobin presently stable at around 8. Some initial complaints of chest discomfort, troponin was nonelevated, echocardiogram pending, symptoms resolved. History of prostate cancer and CML, maintained on Gleevec. Colonoscopy reportedly normal last 5 years showed no specific abnormalities according to the patient's recollection. Plan: Anticipated diagnostic EGD with possible biopsy, possible control of bleeding tomorrow. He has a hemodynamically stable appearance for now. Cardiac notes reviewed and appreciated, no plans for urgent cardiac interventions in the short-term, symptoms of chest discomfort have resolved posttransfusion. Echocardiogram pending. Time with Patient: Greater than 30
--- NOTE | 2023-03-03 15:45 | P.PN ---
Subjective Progress Note Date: 03/03/23 This is a pleasant 67-year-old patient follows Dr. Hartman. Chronic stable medical conditions include GERD, hypertension, hyperlipidemia, obstructive sleep apnea uses CPAP, CML on oral chemotherapy, has had prostate cancer the past. Patient noticed black stools yesterday. Last 4 days patient been having depression this end of the chest with any little activity. Also radiation to the left arm. Also short of breath and dizzy. He's probably had dark stools for a bit longer than that. Hemoglobin the ER was 5.7. Patient was given 2 units of blood. Has GI service not available the hospital, surgery was consulted March 02: No further bleeding. Feels much better. Hemoglobin 7.8. Patient and family requested to be the surgeon. Await further input. 03/03/2023 Patient is evaluated on medical floor. Currently chest pain has resolved. Patient has been continued on clear liquid diet with no further episodes of dark stool. He is tolerating diet. Hemoglobin has remained stable at 7.9. He continues on IV iron completed bag 1 of 3. Continues on normal saline at 75 mls/hr. He is scheduled to undergo EGD tomorrow with general surgery. Review of Systems Constitutional: Denied any fatigue denied any fever. Cardio vascular: denied any chest pain, palpitations Gastrointestinal: denied any nausea, vomiting, diarrhea Pulmonary: Denied any shortness of breath cough Neurologic denied any new focal deficits All inpatient medications were reviewed and appropriate changes in these medications as dictated in the interval history and assessment and plan. PHYSICAL EXAMINATION: GENERAL: The patient is alert and oriented x3, not in any acute distress. Well developed, well nourished. HEENT: Pupils are round and equally reacting to light. EOMI. No scleral icterus. No conjunctival pallor. Normocephalic, atraumatic. No pharyngeal erythema. No thyromegaly. CARDIOVASCULAR: S1 and S2 present. No murmurs, rubs, or gallops. PULMONARY: Chest is clear to auscultation, no wheezing or crackles. ABDOMEN: Soft, nontender, nondistended, normoactive bowel sounds. No palpable organomegaly. MUSCULOSKELETAL: No joint swelling or deformity. EXTREMITIES: No cyanosis, clubbing, or pedal edema. NEUROLOGICAL: Gross neurological examination did not reveal any focal deficits. SKIN: No rashes. Assessment and plan Assessment Acute severe blood loss anemia status post 2 units of PRBC hemoglobin of 5.7 on admission currently stable at 7.9 Unstable angina likely from severe anemia symptoms have resolved with improvement of hemoglobin Hx of CML which patient is maintained on oral chemotherapy; Gleevac Hx of GERD Hyperlipidemia Essential Hypertension Obstructive sleep apnea uses CPAP Hx of prostate cancer and surgery Chronic and ongoing nicotine use GI prophylaxis DVT prophylaxis mechanical Full Code Plan Continue clear liquid diet EGD planned tomorrow with general surgery Echocardiogram was done and pending Hemoglobin stable f/u CBC tomorrow Oncology and general surgery following The impression and plan of care has been dictated by Trish Ortega Nurse Practitioner as directed. Dr. Isaiah MD I have performed a history and physical examination and medical decision making of this patient, discussed the same with the dictator, and agree with the dictators assessment and plan as written, documented as a scribe. Based on total visit time, I have performed more than 50% of this visit. Objective - Vital Signs Vital signs: Vital Signs Temp 97.7 F 03/03/23 15:29 Pulse 62 03/03/23 15:29 Resp 16 03/03/23 15:29 BP 142/70 03/03/23 15:29 Pulse Ox 98 03/03/23 15:29 FiO2 Intake & Output 03/02/23 03/03/23 03/03/23 18:59 06:59 18:59 Intake Total 240 Balance 240 Weight 81 kg Intake: Oral 240 Other: Voiding Method Toilet # Voids 2 1 1 - Labs CBC & Chem 7: 03/03/23 07:57 03/02/23 08:26 Labs: Abnormal Lab Results - Last 24 Hours (Table) 03/03/23 Range/Units 07:57 RBC 2.33 L (4.30-5.90) m/uL Hgb 7.9 L (13.0-17.5) gm/dL Hct 23.4 L (39.0-53.0) % MCV 100.5 H (80.0-100.0) fL RDW 16.2 H (11.5-15.5) % Lymphocytes # 0.8 L (1.0-4.8) k/uL Assessment and Plan Time with Patient: Less than 30
--- NOTE | 2023-03-03 16:02 | CA ---
Transthoracic Echo Report Name: Ernie Hou Age: 67 Gender: M : 1955 Exam Date: 03/03/2023 09:22 Exam Location: [facility] Ht (in): 69 Wt (lb): 178 Ordering Physician: Lenard Navarro MD Attending/Referring Phys: Financial Reserve Clerk Hilda Rueda RDCS Procedure CPT: Indications: Chest Pain Cardiac Hx: Technical Quality: Good Contrast 1: Total Dose (mL): Contrast 2: Total Dose (mL): MEASUREMENTS (Male / Female) Normal Values 2D ECHO LV Diastolic Diameter PLAX 5.9 cm 4.2 - 5.9 / 3.9 - 5.3 cm LV Systolic Diameter PLAX 4.0 cm IVS Diastolic Thickness 1.5 cm 0.6 - 1.0 / 0.6 - 0.9 cm LVPW Diastolic Thickness 1.4 cm 0.6 - 1.0 / 0.6 - 0.9 cm LV Relative Wall Thickness 0.5 RV Internal Dim ED PLAX 3.5 cm LA Systolic Diameter LX 4.3 cm 3.0 - 4.0 / 2.7 - 3.8 cm LV Diastolic Volume MOD BP 142.1 cm??? 67 - 155 / 56 - 104 cm??? LV Systolic Volume MOD BP 78.7 cm??? 22 - 58 / 19 - 49 cm??? LV Ejection Fraction MOD BP 44.6 % >= 55 % LV Diastolic Volume MOD 4C 174.2 cm??? LV Systolic Volume MOD 4C 86.4 cm??? LV Ejection Fraction MOD 4C 50.4 % LV Diastolic Length 4C 7.9 cm LV Systolic Length 4C 6.6 cm LV Diastolic Volume MOD 2C 93.0 cm??? LV Systolic Volume MOD 2C 72.2 cm??? LV Ejection Fraction MOD 2C 22.4 % LV Diastolic Length 2C 6.3 cm LV Systolic Length 2C 6.6 cm LA Volume 84.4 cm??? 18 - 58 / 22 - 52 cm??? M-MODE Aortic Root Diameter MM 3.9 cm MV E Point Septal Separation 0.7 cm AV Cusp Separation MM 2.2 cm DOPPLER AV Peak Velocity 156.2 cm/s AV Peak Gradient 9.8 mmHg AI Peak Velocity 207.4 cm/s AI Peak Gradient 17.2 mmHg AI Pressure Half Time 1041.7 ms MV Area PHT 3.1 cm??? Mitral E Point Velocity 76.7 cm/s Mitral A Point Velocity 73.1 cm/s Mitral E to A Ratio 1.0 MV Deceleration Time 247.2 ms MV E' Velocity 9.1 cm/s Mitral E to MV E' Ratio 8.4 TR Peak Velocity 219.2 cm/s TR Peak Gradient 19.2 mmHg Right Ventricular Systolic Press 24.2 mmHg FINDINGS Left Ventricle Left ventricular ejection fraction is estimated at 50-55 %. Moderate LVH. Left ventricle systolic function borderline normal.left ventricular cavity size normal. Right Ventricle Mild right ventricular dilatation. Right ventricular systolic pressure within normal limits. Right Atrium Normal right atrial size. Left Atrium Mildly increased left atrial diameter. Severely increased left atrial volume. Mildly increased left atrial area. Mitral Valve Mild mitral regurgitation. Thickened mitral valve leaflets Aortic Valve Trileaflet aortic valve. Mild aortic regurgitation. Tricuspid Valve Structurally normal tricuspid valve. Mild tricuspid regurgitation. Pulmonic Valve Structurally normal pulmonic valve. No pulmonic regurgitation. Pericardium Normal pericardium. Aorta Mild aortic dilatation at the level of the sinuses of valsalva 39 mm CONCLUSIONS 1. Left ventricular systolic function borderline normal 2. Mild mitral, aortic and tricuspid regurgitation Previewed by: Dr. Angeline Fox MD (Electronically Signed) Final Date: 03 March 2023 16:01
[2023-03-03] MEDS: CYCLOBENZAPRINE 10 MG TAB PO SCH (19:51)
[2023-03-03] MEDS: ATORVASTATIN 10 MG TAB PO SCH (19:51)
[2023-03-04 07:36] VITALS: RESP 16; TEMP 97.9
[2023-03-04] MEDS ORDERED: IV FLUID CONTINUATION 1,000 ML IV ONE (07:58)
[2023-03-04] MEDS ORDERED: PROPOFOL 10 MG/ML 20 ML VIAL IV ONE (08:08)
[2023-03-04] MEDS: SODIUM FERRIC GLUCONAT-SUCROSE 125 MG in SODIUM CHLORIDE 0.9% 100 ML IVPB SCH (09:24)
[2023-03-04] MEDS: PANTOPRAZOLE 40 MG/10 ML VIAL IV SCH (09:24)
[2023-03-04] MEDS: amLODIPine 2.5 MG TAB PO SCH (09:25)
[2023-03-04] MEDS: SODIUM CHLORIDE 0.9% 1,000 ML IV SCH (09:25)
--- NOTE | 2023-03-04 09:25 | P.OP ---
Date of Procedure: 03/04/23 Preoperative Diagnosis: GI bleed Postoperative Diagnosis: gastritis Procedure(s) Performed: EGD with antral biopsy Anesthesia: other (general) Surgeon: Brianna Haas Estimated Blood Loss (ml): 5 Pathology: other (antral biopsy) Condition: stable Disposition: PACU Indications for Procedure: Symptomatic anemia with Hgb 5, responded to transfusions. GI bleeding, suspected upper GI source. Operative Findings: Gastritis with no ulcers, old blood, AVMs noted. Suspect bleeding was from hemorrhagic gastritis. Description of Procedure: Patient was brought to the endoscopy suite & placed in left lateral decubitus position. Standard time-out was performed. Anesthesia administered general anesthesia & his heart rate, pulse oximitry & blood pressure was monitored throughout the entire case. The endoscope was passed through oropharynx down through the pharynx into the esophagus. Stomach was then insufflated. Pylorus was then intubated and the 1st & 2nd portions of duodenum were interrogated & scope was then pulled back into the stomach. There was evidence of diffuse gastritis but no evidence of ulcers, AVMs, or old blood within stomach or duodenum. Retroflexion of the scope yielded no hiatal hernia. Biopsies were taken of the antrum for Helicobacter pylori. The endoscope was then pulled back to ~33 cm at the lower esophageal sphincter & GE junction was evaluated. No evidence of esophagitis or Packer's. The endoscope was then removed.Patient tolerated procedure well. Upon stable recovery, will be transferred back to his room on the floor. OK for clear liquids, and can be advanced as tolerated. Will need to start taking his omeprazole daily. Can follow up outpatient for repeat EGD if needed & colonoscopy if anemia persists. If bleeding persists and upper & lower endoscopy are essentially negative, would need to entertain outpatient capsule endoscopy.
[2023-03-04 10:17] LABS: HCT 24.3 % (39.0-53.0); HGB 7.8 gm/dL (13.0-17.5); MCH 32.6 pg (25.0-35.0); MCHC 32.1 g/dL (31.0-37.0); MCV 101.7 fL (80.0-100.0); Macrocytosis Slight; Mean Platelet Volume 9.4; Platelet Count 212 k/uL (150-450); RBC 2.39 m/uL (4.30-5.90); RDW 15.5 % (11.5-15.5)
--- NOTE | 2023-03-04 10:48 | P.PN ---
Subjective Progress Note Date: 03/04/23 PROGRESS NOTE The patient is a 67-year-old male with a history of hypertension, hyperlipidemia, chronic tobacco use who presented with symptoms of progressive fatigue, chest pressure and dyspnea as well as dizziness over the last few days, he noted black stool and was noted to be severely anemic with heme-positive stool. He was transfused and feels much better at this time. He has no prior history of obstructive CAD. He had an MPI in 2013 that showed no evidence of stress-induced ischemia and his systolic function was normal at that time. He has a known history of CML, has been stable. He denies any nausea or vomiting or abdominal pain. He denies any palpitations. He has no clear PND, orthopnea or peripheral edema. He has no arrhythmia on the monitor. He is scheduled to undergo endoscopy tomorrow. March 04: The patient feels well this morning, he has been ambulating without difficulty. He underwent endoscopy today that showed no acute bleeding. He denies any dizziness or palpitations. He continues to be in sinus mechanism. Hemodynamically he is stable. His echocardiogram yesterday showed an ejection fraction of 50-55% with mild mitral and tricuspid regurgitation. Medications: Amlodipine 2.5 mg daily, Lipitor 10 mg daily, PHYSICAL EXAMINATION: Blood pressure 137/70 heart rate 60 LUNGS: Clear to auscultation HEART: Regular rate and rhythm, S1, S2. No S3. systolic ejection murmur ABDOMEN: Soft, nontender, no organomegaly EXTREMETIES: No edema LAB: Hemoglobin 7.8 IMPRESSION: 1. Severe anemia, source unclear, improved post transfusion and iron supplement 2. Chest discomfort secondary to the anemia 3. History of hypertension 4. History of hyperlipidemia 5. Chronic tobacco use 6. History of CML PLAN: 1. Continue present therapy 2. Increase physical activity 3. Patient with require further cardiac evaluation as an outpatient 4. Smoking cessation Objective - Vital Signs Vital signs: Vital Signs Temp 97.9 F 03/04/23 07:34 Pulse 68 03/04/23 07:40 Resp 16 03/04/23 07:40 BP 137/70 03/04/23 07:34 Pulse Ox 99 03/04/23 07:34 FiO2 Intake & Output 03/03/23 03/04/23 03/04/23 18:59 06:59 18:59 Intake Total 358 100 Balance 358 100 Intake: IV 100 Oral 358 Other: Voiding Method Toilet Toilet Toilet # Voids 1 1 - Labs CBC & Chem 7: 03/04/23 07:07 03/02/23 08:26 Labs: Abnormal Lab Results - Last 24 Hours (Table) 03/04/23 Range/Units 07:07 RBC 2.39 L (4.30-5.90) m/uL Hgb 7.8 L (13.0-17.5) gm/dL Hct 24.3 L (39.0-53.0) % MCV 101.7 H (80.0-100.0) fL
[2023-03-04 11:26] LABS: Basophils # (M) 0.06 k/uL (0-0.2); Eosinophils # (M) 0.24 k/uL (0-0.7); Lymphocytes # (M) 1.32 k/uL (1.0-4.8); Monocytes # (M) 0.36 k/uL (0-1.0); Neutrophils # (M) 4.02 k/uL (1.3-7.7); Neutrophils % (M) 67 %; Nucleated Red Blood Cells 0 /100 WBC (0-0); Total Cells Counted 100
[2023-03-04 12:50] VITALS: BP 132/72; PULSE 62
--- NOTE | 2023-03-05 22:29 | P.DS ---
Providers Date of admission: 03/01/23 12:03 Attending physician: Lenard Navarro Consults: 03/01/23 21:49 Consult Physician Routine Consulting Provider: Cristofer Hartley Consult Reason/Comments: CML Do you want consulting provider notified?: Yes 03/02/23 10:44 Consult Physician Routine Consulting Provider: Brianna Haas Consult Reason/Comments: Anemia, dark stools Do you want consulting provider notified?: Already Contacted 03/02/23 15:48 Consult Physician Routine Consulting Provider: Angeline Fox Consult Reason/Comments: Chest pain Do you want consulting provider notified?: Yes Primary care physician: Lucio [facility] Course: Final Diagnosis Acute severe blood loss anemia status post 2 units of PRBC hemoglobin of 5.7 on admission currently stable at 7.9 Unstable angina likely from severe anemia symptoms have resolved with improvement of hemoglobin Hx of CML which patient is maintained on oral chemotherapy; Gleevac Hx of GERD Hyperlipidemia Essential Hypertension Obstructive sleep apnea uses CPAP Hx of prostate cancer and surgery Chronic and ongoing nicotine use Full Code Discharge Disposition Patient is stable for discharge home. Patient has been cleared by general surgery. No signs of active bleeding. Patient given script for repeat labs in 2 to 3 days. General surgery follow up on discharge recommending repeat eGD and also colonoscopy if anemia persists. Patient to follow up with oncology on discharge. Patient also to follow up with cardiology. Hospital Course This is a pleasant 67-year-old patient follows Dr. Hartman. Chronic stable medical conditions include GERD, hypertension, hyperlipidemia, obstructive sleep apnea uses CPAP, CML on oral chemotherapy, has had prostate cancer the past. Patient noticed black stools, and also developed chest pain over the left chest and radiating down the left arm with little activity. Patient was also short of breath and dizzy. Patient came to he ER for evaluation and initial work up found hemoglobin to be 5.7. Patient had negative troponin level x3. Patient had mild BLANK that improved with hydration. Patient was given 2 units of blood. GI services was not available in the hospital patient wanted to be admitted and Dr. Wadsworth general surgeon was consulted. Hemoglobin improved after the 2 units and remained stable at 7.8. Oncology was also consulted, anemia can be a side effect of patients oral chemotherapy medication Gleevac and he has been advised to stop taking this medication for now. Patient underwent EGD which reveals gastritis. There is no evidence of old blood, no ulcerations and no AVMs found on EGD. General surgery recommending patient to continue on PPI and follow up in the office if anemia persists. Cardiology has evaluated the patient and patient had an echocardiogram done showing an EF of 50-55% with mild mitral and tricuspid regurgitation. Patient does have a systolic murmur. Cardiology recommending further work up on outpatient basis. Patient is no longer dizzy and has been ambulating in the room. He is evaluated post EGD and tolerating diet. His lungs are clear, S1 S2 auscultated, abdomen is soft and nontender. No further episodes of dark stool. Chest pain has completely resolved. Please see medication reconciliation for a list of current medication. Thank you for allowing us to participate in the care of this patient. The impression and plan of care has been dictated by Trish Ortega, Nurse Practitioner as directed. Dr. Isaiah MD I have performed a history and physical examination and medical decision making of this patient, discussed the same with the dictator, and agree with the dictators assessment and plan as written, documented as a scribe. Based on total visit time, I have performed more than 50% of this visit. Patient Condition at Discharge: Stable Plan - Discharge Summary Discharge Rx Participant: Yes New Discharge Prescriptions: New Ferrous Sulfate [Feosol] 325 mg PO BID #60 tab Omeprazole [PriLOSEC] 40 mg PO DAILY #30 cap Continue Omeprazole 20 mg PO DAILY Cyclobenzaprine HCl 10 mg PO DAILY Atorvastatin [Lipitor] 10 mg PO HS amLODIPine BESYLATE [Norvasc] 2.5 mg PO DAILY Discontinued Imatinib Mesylate [Gleevec] 400 mg PO DAILY Cephalexin [Keflex] 500 mg PO QID Discharge Medication List Omeprazole 20 mg PO DAILY 06/15/15 [History] Atorvastatin [Lipitor] 10 mg PO HS 03/15/21 [History] Cyclobenzaprine HCl 10 mg PO DAILY 03/15/21 [History] amLODIPine BESYLATE [Norvasc] 2.5 mg PO DAILY 03/15/21 [History] Ferrous Sulfate [Feosol] 325 mg PO BID #60 tab 03/04/23 [Rx] Omeprazole [PriLOSEC] 40 mg PO DAILY #30 cap 03/04/23 [Rx] Follow up Appointment(s)/Referral(s): [facility] [REFERRING] - 1-2 days Angeline Fox MD [STAFF PHYSICIAN] - 1 Week Lucio Hartman DO [Primary Care Provider] - 1-2 Days Onofre Greer MD [STAFF PHYSICIAN] - 1 Week Ambulatory/Diagnostic Orders: Complete Blood Count w/diff [LAB.AMB] Time Frame: 3 Days, Location: None Selected Patient Instructions/Handouts: Anemia (DC) Activity/Diet/Wound Care/Special Instructions: Repeat CBC in 2 to 3 days. Follow up with oncology and PCP outpatient Need to follow up with cardiology and cardiology is recommended outpatient cardiac catheterization. Discharge Disposition: HOME SELF-CARE
[2023-03-06 08:02] LABS: Methylmalonic Acid 0.22 umol/L (<0.40)
== END 2023-03-04 14:10 | disposition home or self-care (01) | DRG 378 ==
LOC: EC 09:58 → 3SCARD 12:03
PROVIDERS: ADMIT Hospitalist; ATTEND Hospitalist
PROC: 0DB78ZX Excision of Stomach, Pylorus, Via Natural or Artificial Opening Endoscopic, Diagnostic (ICD-10-PCS; principal; 2023-03-01)
PROC: 30233N1 Transfusion of Nonautologous Red Blood Cells into Peripheral Vein, Percutaneous Approach (ICD-10-PCS; 2023-03-01)
DX: K29.61 Other gastritis with bleeding (principal); C92.10 Chronic myeloid leukemia, BCR/ABL-positive, not having achieved remission; D62 Acute posthemorrhagic anemia; I20.0 Unstable angina; R42 Dizziness and giddiness; K21.9 Gastro-esophageal reflux disease without esophagitis; G47.33 Obstructive sleep apnea (adult) (pediatric); I10 Essential (primary) hypertension; G47.00 Insomnia, unspecified; F41.9 Anxiety disorder, unspecified; F32.A Depression, unspecified; F17.210 Nicotine dependence, cigarettes, uncomplicated; E78.5 Hyperlipidemia, unspecified; Z79.899 Other long term (current) drug therapy; Z85.46 Personal history of malignant neoplasm of prostate; K31.811 Angiodysplasia of stomach and duodenum with bleeding; Z87.442 Personal history of urinary calculi; K59.00 Constipation, unspecified; I08.3 Combined rheumatic disorders of mitral, aortic and tricuspid valves; I45.10 Unspecified right bundle-branch block; N28.9 Disorder of kidney and ureter, unspecified; Z88.8 Allergy status to other drugs, medicaments and biological substances; Z88.2 Allergy status to sulfonamides; Z71.6 Tobacco abuse counseling
CPT/HCPCS: 36415; 36430; 43239; 71046; 80053; 82272; 82525; 82607; 82728; 82746; 83540; 83550; 83735; 83880; 83921; 84484; 85025; 85610; 85730; 86850; 86900; 86901; 86920; 88305; 93005; 93306; 94760; 96374; 99291

== ENCOUNTER → 2023-03-09 | Outpatient (CLI) | payer MEDICARE ==
[2023-03-09 15:47] LABS: Basophils # (A) 0.01 X 10*3/uL (0.00-0.10); Basophils % (A) 0.1 %; Eosinophils # (A) 0.29 X 10*3/uL (0.04-0.35); Eosinophils % (A) 2.9 %; HCT 25.8 % (39.6-50.0); Immature Grans, Automated 0.3 %; Lymphocytes # (A) 1.17 X 10*3/uL (0.90-5.00); Lymphocytes % (A) 11.7 %; MCV 103.2 fL (80.0-97.0); Mean Platelet Volume 10.9 fL (9.5-12.2); Monocytes # (A) 0.86 X 10*3/uL (0.20-1.00); Monocytes % (A) 8.6 %; NRBC Per 100 WBC 0 /100 WBCS (0.0-0.0); Neutrophils # (A) 7.65 X 10*3/uL (1.80-7.70); Neutrophils % (A) 76.4 %; Platelet Count 294 X 10*3/uL (140-440); RDW 15.5 % (11.5-14.5); WBC 10.01 X 10*3/uL (4.50-10.00)
== END | disposition home or self-care (01) ==
LOC: LABWHC1 09:09
PROVIDERS: ATTEND Internal Medicine Hematology & Oncology
DX: D64.9 Anemia, unspecified (principal)
CPT/HCPCS: 36415; 85025

== ENCOUNTER 2023-03-28 07:37 | Day surgery (SDC) | payer MEDICARE ==
[2023-03-28] MEDS ORDERED: LACTATED RINGERS 1,000 ML IV SCH (08:01)
[2023-03-28] MEDS ORDERED: LIDOCAINE 1% (10MG/ML) FOR IV START INTRADERMA PRN (08:01)
[2023-03-28 08:30] VITALS: TEMP 98.6
[2023-03-28] MEDS ORDERED: LIDOCAINE 2% INJ 20 MG/ML (2 ML VIAL) ONE (08:56)
[2023-03-28] MEDS ORDERED: PROPOFOL 10 MG/ML 20 ML VIAL IV ONE (08:56)
--- NOTE | 2023-03-28 09:28 | P.PCN ---
Date of Procedure: 03/28/23 Procedure(s) Performed: BRIEF HISTORY: Patient is a 67-year-old pleasant white male scheduled for an elective colonoscopy as a part of severe symptomatic anemia with hemoglobin of 5 g/dl. He was having some Black tarry stools and was admitted to [facility] 2 weeks ago and had an upper endoscopy by Dr. samaniego and was noted to have small hiatal hernia and gastritis. PROCEDURE PERFORMED: Colonoscopy. PREOPERATIVE DIAGNOSIS: severe symptomatic anemia and a negative upper endoscopy to weeks ago. IV sedation per Anesthesia. PROCEDURE: After informed consent was obtained, the patient, was brought into the endoscopy unit. IV sedation was administered by Anesthesia under continuous monitoring. Digital rectal examination was normal. Initially the Olympus CF-160 flexible video colonoscope was then inserted in the rectum, gradually advanced into the cecum without any difficulty. Careful examination was performed as the scope was gradually being withdrawn. Ileocecal valve and the appendiceal orifice were visualized and appeared normal. Prep was excellent. Mucosa of the cecum, ascending colon, transverse colon, descending colon, sigmoid colon, and rectum appeared normal. Retroflexion was performed in the rectum and no lesions were seen. The patient tolerated the procedure well. IMPRESSION: Normal-appearing colon from rectum to cecum no evidence of colorectal neoplasia. scattered sigmoid diverticulosis RECOMMENDATIONS: Findings of this examination were discussed with the patient As well as his family. He was advised to continue with iron supplements and follow-up in the office in 2 weeks. Obtain iron studies and based on the findings if we are dealing with iron deficiency anemia he willwill schedule him for a small bowel capsule endoscopy.
[2023-03-28 09:33] VITALS: RESP 16
[2023-03-28 09:50] VITALS: BP 143/75; PULSE 72
== END 2023-03-28 10:24 | disposition home or self-care (01) ==
LOC: ORWHC2ENDO 07:37
PROVIDERS: ATTEND Internal Medicine Gastroenterology
DX: K57.30 Diverticulosis of large intestine without perforation or abscess without bleeding (principal); K21.9 Gastro-esophageal reflux disease without esophagitis; I10 Essential (primary) hypertension; E78.5 Hyperlipidemia, unspecified; G47.33 Obstructive sleep apnea (adult) (pediatric); Z90.49 Acquired absence of other specified parts of digestive tract; Z79.899 Other long term (current) drug therapy
CPT/HCPCS: 45378; J2704; J2001

== ENCOUNTER → 2023-04-16 | Day surgery (SDC) | payer MEDICARE ==
[2023-04-12 13:49] VITALS: BMI 25.8
[2023-04-16 07:05] VITALS: BP 145/67; PULSE 68; RESP 18; TEMP 97.3
== END ==
LOC: ORWHC2ENDO 06:33
PROVIDERS: ATTEND Internal Medicine Gastroenterology
DX: D64.9 Anemia, unspecified (principal)
CPT/HCPCS: 91110

== ENCOUNTER → 2023-07-11 | Outpatient (CLI) | payer MEDICARE ==
--- NOTE | 2023-07-11 14:09 | CA ---
Transthoracic Echo Report Name: Ernie Hou Age: 68 Gender: M : 1955 Exam Date: 07/11/2023 08:35 Exam Location: [place] [facility] Ht (in): 69 Wt (lb): 174 Ordering Physician: Lucio Hartman DO Attending/Referring Phys: C Python Developer Didi Mcneal RDCS Procedure CPT: Indications: R01.1 CARDIAC MURMUR, UNSPECIFIED Cardiac Hx: Technical Quality: Fair Contrast 1: Total Dose (mL): Contrast 2: Total Dose (mL): MEASUREMENTS (Male / Female) Normal Values 2D ECHO LV Diastolic Diameter PLAX 5.6 cm 4.2 - 5.9 / 3.9 - 5.3 cm LV Systolic Diameter PLAX 3.6 cm IVS Diastolic Thickness 1.5 cm 0.6 - 1.0 / 0.6 - 0.9 cm LVPW Diastolic Thickness 1.5 cm 0.6 - 1.0 / 0.6 - 0.9 cm LV Relative Wall Thickness 0.5 RV Internal Dim ED PLAX 3.6 cm LA Volume 68.2 cm??? 18 - 58 / 22 - 52 cm??? M-MODE Aortic Root Diameter MM 3.7 cm LA Systolic Diameter MM 4.7 cm LA Ao Ratio MM 1.3 AV Cusp Separation MM 2.2 cm DOPPLER AV Peak Velocity 169.8 cm/s AV Peak Gradient 11.5 mmHg AV Mean Velocity 116.8 cm/s AV Mean Gradient 6.1 mmHg AV Velocity Time Integral 41.5 cm LVOT Peak Velocity 122.4 cm/s LVOT Peak Gradient 6.0 mmHg LVOT Velocity Time Integral 28.2 cm MV Area PHT 3.6 cm??? Mitral E Point Velocity 87.2 cm/s Mitral A Point Velocity 79.7 cm/s Mitral E to A Ratio 1.1 MV Deceleration Time 209.9 ms MV E' Velocity 8.1 cm/s Mitral E to MV E' Ratio 10.8 TR Peak Velocity 187.3 cm/s TR Peak Gradient 14.0 mmHg Right Ventricular Systolic Press 18.6 mmHg FINDINGS Left Ventricle Moderately increased left ventricular wall thickness. Left ventricular cavity size normal. Normal left ventricular systolic function with no obvious regional wall motion abnormalities. Left ventricular ejection fraction is estimated at 55-60 %. Right Ventricle Mild right ventricular dilatation. Right ventricular systolic pressure within normal limits. Right Atrium Normal right atrial size. Left Atrium Mildly increased left atrial volume. Mildly increased left atrial area. Mitral Valve Structurally normal mitral valve. Mild mitral annular calcification. Mild mitral regurgitation. Aortic Valve Trileaflet aortic valve. No aortic stenosis. Trace aortic regurgitation. Tricuspid Valve Structurally normal tricuspid valve. Mild tricuspid regurgitation. Pulmonic Valve Trace pulmonic regurgitation. Pericardium No pericardial effusion. Aorta Normal size aortic root and proximal ascending aorta. CONCLUSIONS Normal LV systolic function Mitral annular calcification with mild MR Previewed by: Dr. Yefri Drummond MD (Electronically Signed) Final Date: 11 July 2023 14:08
== END | disposition home or self-care (01) ==
LOC: RADECHMAIN 08:24
PROVIDERS: ATTEND Family Medicine
DX: I34.81 Nonrheumatic mitral (valve) annulus calcification (principal); R01.1 Cardiac murmur, unspecified
CPT/HCPCS: 93306

== ENCOUNTER → 2024-06-09 | Outpatient (CLI) | payer OTHER ==
--- NOTE | 2024-06-09 16:08 | US ---
EXAMINATION TYPE: US carotid duplex BILAT DATE OF EXAM: 06/09/2024 COMPARISON: NONE CLINICAL INDICATION: Male, 69 years old with history of I73.9 PERIPHERAL VASCULAR DISEASE; PAD TECHNIQUE: Carotid duplex ultrasound examination. Indirect Doppler criteria was utilized. FINDINGS: EXAM MEASUREMENTS: RIGHT: Peak Systolic Velocity (PSV) cm/sec ----- Right CCA: 117.9 ----- Right ICA: 140.6 ----- Right ECA: 102.0 ICA/CCA ratio: 1.2 RIGHT: End Diastole cm/sec ----- Right CCA: 29.9 ----- Right ICA: 35.0 ----- Right ECA: 34.6 LEFT: Peak Systolic Velocity (PSV) cm/sec ----- Left CCA: 155.0 ----- Left ICA: 120.5 ----- Left ECA: 123.0 ICA/CCA ratio: 0.8 LEFT: End Diastole cm/sec ----- Left CCA: 54.4 ----- Left ICA: 31.4 ----- Left ECA: 18.4 VERTEBRALS (direction of flow): Right Vertebral: Antegrade Left Vertebral: Antegrade Rhythm: abnormal rhythm image 17 INSIDE [employer]OR SALES NOTES: mild atherosclerotic plaque bilateral bulbs. elevated velocities Rt prox CCA, Rt B ulb, LT prox, mid, distal CCA. May be attributed to vessel tortuosity. exam limited by shadowing plaque, deep diving tortuous vessels IMPRESSION: 1. 50-69 percent stenosis of the right carotid bifurcation. 2. Less than 50% stenosis of the left carotid bifurcation 3. Irregular rhythm and spectral waveforms correlate with EKG. Criteria for Assigning % of Stenosis / Diameter reduction (Estimation based on the indirect measurements of the internal carotid artery velocities (ICA PSV). 1. Normal (no stenosis)=ICA PSV < 125 cm/s: ratio < 2.0: ICA EDV<40 cm/s. 2. Less than 50% stenosis=ICA PSV < 125 cm/s: ratio < 2.0: ICA EDV<40 cm/s. 3. 50 to 69% stenosis=ICA PSV of 125 to 230 cm/s: ration 2.0 ? 4.0: ICA EDV 40-100 cm/s. 4. Greater than 70% stenosis to near occlusion= ICA PSV > 230 cm/s: ratio > 4.0: ICA EDV > 100 cm/s. 5. Near occlusion= ICA PSV velocities may be low or undetectable: variable ratio and ICA EDV. 6. Total occlusion=unable to detect flow.
== END | disposition home or self-care (01) ==
LOC: RADUSWWP 11:06
PROVIDERS: ATTEND Family Medicine
DX: I65.23 Occlusion and stenosis of bilateral carotid arteries (principal); I73.9 Peripheral vascular disease, unspecified; I49.9 Cardiac arrhythmia, unspecified
CPT/HCPCS: 93880

== ENCOUNTER → 2025-01-19 | Outpatient (CLI) | payer MEDICARE ==
--- NOTE | 2025-01-19 18:40 | CTL ---
EXAMINATION TYPE: CT Low Dose Lung DATE OF EXAM ORDERED: 01/19/2025 COMPARISON: CT Low Dose Lung 03/28/2018 CLINICAL INDICATION: Male, 69 years old with history of Z12.2 SCREENING F17.210 CURRENT SMOKER; [facility], current smoker, .5 ppd x 55 years, Lung cancer screening, History of Smoking/tobacco use. TECHNIQUE: Low dose computed tomography scan was performed through the chest at 1 mm thick sections a nd reconstructed images in multiple planes at 1 mm and [address] DLP: 94.[address] CTDI: 2.4 mGy Automated exposure control for dose reduction was used. CT DIAGNOSTIC QUALITY: Satisfactory FINDINGS: Nodules: Stable posterior right upper lobe 4.6 mm pulmonary nodule (series 6, image 17). Right upper lobe stable 2.9 mm pulmonary nodule (series 6, image 19). Stable left upper lobe 3.1 mm pulmonary nodule (series 6, image 23). New peripheral right upper lobe 4.9 mm pulmonary nodular density (series 6, image 28). Stable left lower lobe 6 mm pulmonary nodule (series 6, image 53). LUNGS: COPD: Severity: None Fibrosis: Severity: None Lymph nodes: None Other findings: None RIGHT PLEURAL SPACE: Effusion: None Calcification: None Thickening: None Pneumothorax: None LEFT PLEURAL SPACE: Effusion: None Calcification: None Thickening: None Pneumothorax: None HEART: Heart Size: Normal Coronary Calcification: Moderate Pericardial Effusion: None OTHER FINDINGS: Upper abdomen: Redemonstration of hepatic cysts with largest measuring up to 4.3 cm. Additional few c alcifications identified within the liver. Bilateral renal cysts identified. Bony thorax: Multilevel anterior osteophytosis of the thoracic spine. Supraclavicular region: None Other: Stable ascending thoracic aortic aneurysm measuring up to 4.3 cm. Mild atherosclerotic calcifi cation of the aorta and its branches. IMPRESSION: 1. Few stable pulmonary nodules from 2018 with a new right upper lobe pulmonary nodule density measu ring 4.9 mm. 2. Stable ascending thoracic aortic aneurysm measuring up to 4.[address] LUNG RAD AND CT CHEST RECOMMENDATION: Lung-Rad 3 Probably Benign: 6 month follow-up LDCT. S Modifier (other clinically significant findings): None [facility], , 01/19/2025 6:37 PM
== END | disposition home or self-care (01) ==
LOC: RADCTMAIN 17:06
PROVIDERS: ATTEND Internal Medicine Hematology & Oncology
DX: Z12.2 Encounter for screening for malignant neoplasm of respiratory organs (principal); F17.210 Nicotine dependence, cigarettes, uncomplicated; I71.21 Aneurysm of the ascending aorta, without rupture; J98.4 Other disorders of lung
CPT/HCPCS: 71271

== ENCOUNTER 2025-05-13 09:36 | Emergency (ER) | payer OTHER, MEDICARE ==
[2025-05-13 10:00] VITALS: RESP 18; TEMP 97.8
--- NOTE | 2025-05-13 10:32 | ED ---
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 Greer is presenting to the emergency department accompanied by his with concern for abnormal labs. Patient states that yesterday [facility] report to emergency department today due to a hemoglobin of 7.4. Patient states that he has a history of an emia and had to receive a blood transfusion due to this in the past. Patient denies active bleeding such as bloody stools, dark or sticky stools, hematuria, hematemesis, or coffee-ground emesis. Overall patient states that he is feeling well. States that he feels a bit more tired than normal and feels exercise fatigue. Denies other acute complaints at this time. - Related Data Home Medications Medication Instructions Recorded Confirmed Cyclobenzaprine HCl 10 mg PO TID PRN 03/15/21 03/31/25 amLODIPine BESYLATE [Norvasc] 2.5 mg PO DAILY 03/15/21 03/31/25 Imatinib Mesylate 400 mg PO PC-SUPPER 04/12/23 03/31/25 Atorvastatin [Lipitor] 10 mg PO PC-SUPPER 03/31/25 03/31/25 Omeprazole [PriLOSEC] 20 mg PO AC-BID 03/31/25 03/31/25 Previous Rx's Medication Instructions Recorded Docusate [Colace] 100 mg PO BID #14 cap 04/02/25 cefuroxime axetiL [Ceftin] 500 mg PO BID #24 tab 04/02/25 Allergies Allergy/AdvReac Type Severity Reaction Status Date / Time lisinopril Allergy Intermediate Swelling Verified 05/13/25 10:00 of tongue sulfamethoxazole Allergy Rash/Hives Verified 05/13/25 10:00 [From Bactrim] trimethoprim [From Bactrim] Allergy Rash/Hives Verified 05/13/25 10:00 Review of Systems ROS Statement: Those systems with pertinent positive or pertinent negative responses have been documented in the HPI. ROS Other: All systems not noted in ROS Statement are negative. Past Medical History Past Medical History: Blood Disorder, Cancer, GERD/Reflux, Hearing Disorder / Deafness, Hyperlipidemia, Hypertension, Renal Disease, Sleep Apnea/CPAP/BIPAP Additional Past Medical History / Comment(s): hx sepsis-Positive blood cultures once before while in [place]-never found source, 2009 CML current tx with oral chemo, prostate cancer tx with surgery, JANE uses cpap, kidney stones x 3-passed on his own. ANEMIA. History of Any Multi-Drug Resistant Organisms: None Reported Past Surgical History: Appendectomy, Joint Replacement, Orthopedic Surgery, Prostate Surgery Additional Past Surgical History / Comment(s): PROSTATECTOMY, bone marrow bx twice, arthroscopy L knee, lft knee replaceent hydrocele repair, Past Anesthesia/Blood Transfusion Reactions: No Reported Reaction Additional Past Anesthesia/Blood Transfusion Reaction / Comment(s): no adverse reaction to recent blood transfusion Past Psychological History: No Psychological Hx Reported Smoking Status: Current some day smoker Past Alcohol Use History: None Reported Past Drug Use History: None Reported - Past Family History Brother(s) Family Medical History: Cancer Sister(s) Family Medical History: Cancer Additional Family Medical History / Comment(s): melanoma Father Family Medical History: Cancer Additional Family Medical History / Comment(s): Father of LUNG cancer at age 66 yrs. Mother Additional Family Medical History / Comment(s): HEART PROBLEMS later in her life. at age 76 yrs. Daughter(s) Family Medical History: Cancer Additional Family Medical History / Comment(s): LEUKEMIA General Exam Limitations: no limitations Eye exam: Present: normal appearance, PERRL, EOMI. Absent: scleral icterus, conjunctival injection, periorbital swelling Neck exam: Present: normal inspection. Absent: tenderness, meningismus, lymphadenopathy Respiratory exam: Present: normal lung sounds bilaterally. Absent: respiratory distress, wheezes, rales, rhonchi, stridor Cardiovascular Exam: Present: regular rate, normal rhythm, normal heart sounds. Absent: systolic murmur, diastolic murmur, rubs, gallop, clicks GI/Abdominal exam: Present: soft, normal bowel sounds. Absent: distended, tenderness, guarding, rebound, rigid Extremities exam: Present: normal inspection, full ROM, normal capillary refill. Absent: tenderness, pedal edema, joint swelling, calf tenderness Skin exam: Present: warm, dry, pallor. Absent: normal color, rash Course Vital Signs 05/13/25 05/13/25 05/13/25 09:58 10:33 11:26 Temperature 97.8 F Pulse Rate 72 65 Respiratory 18 18 18 Rate Blood Pressure 146/75 135/67 O2 Sat by Pulse 99 95 Oximetry Medical Decision Making - Medical Decision Making Was pt. sent in by a medical professional or institution (, PA, [facility], urgent care, hospital, or longterm...) When possible be specific @ -[facility] to [facility] emergency department due to a hemoglobin of 7.4. Did you speak to anyone other than the patient for history (EMS, parent, family, police, friend...)? What history was obtained from this source @ -No Did you review nursing and triage notes (agree or disagree)? Why? @ -I reviewed and agree with nursing and triage notes Were old charts reviewed (outside hosp., previous admission, EMS record, old EKG, old radiological studies, urgent care reports/EKG's, longterm records)? Report findings @ -No old charts were reviewed Differential Diagnosis (chest pain, altered mental status, abdominal pain women, abdominal pain men, vaginal bleeding, weakness, fever, dyspnea, syncope, headache, dizziness, GI bleed, back pain, seizure, CVA, palpatations, mental health, musculoskeletal)? @ -Differential GI Bleed: Esophageal varices, aortoenteric fistula, Fabienne-Cazares, gastritis, peptic ulcer disease, diverticulosis, inflammatory bowel disease, hemorrhoids, fissure, colitis, malignancy, Meckel's diverticulum, this is not meant to be an all-inclusive list. EKG interpreted by me (3pts min.). @ -None X-rays interpreted by me (1pt min.). @ -None done CT interpreted by me (1pt min.). @ -None done U/S interpreted by me (1pt. min.). @ -None done What testing was considered but not performed or refused? (CT, X-rays, U/S, labs)? Why? @ -None What meds were considered but not given or refused? Why? @ -None Did you discuss the management of the patient with other professionals (professionals i.e. , ANISH, [facility], lab, RT, psych nurse, social insurance adviser, plater supervisor, teacher, army senior officer, family caseworker)? Give summary @ -No Was smoking cessation discussed for >3mins.? @ -No Was critical care preformed (if so, how long)? @ -No Were there social determinants of health that impacted care today? How? (Homelessness, low income, unemployed, alcoholism, drug addiction, transportation, low edu. Level, literacy, decrease access to med. care, prison, rehab)? @ -No Was there de-escalation of care discussed even if they declined (Discuss DNR or withdrawal of care, Hospice)? DNR status @ -No What co-morbidities impacted this encounter? (DM, HTN, Smoking, COPD, CAD, Cancer, CVA, ARF, Chemo, Hep., AIDS, mental health diagnosis, sleep apnea, morbid obesity)? @ -None Was patient admitted / discharged? Hospital course, mention meds given and route, prescriptions, significant lab abnormalities, going to OR and other pertinent info. @ -Discharge. 69-year-old male presenting with a hemoglobin of 7.4. Patient is pale on examination however he is overall well-appearing. Initial vitals are stable. Patient's hemoglobin today is a level of 8.4. Patient stable for discharge recommend close follow-up with primary care provider. Case discussed with my attending Dr. Dunham. Undiagnosed new problem with uncertain prognosis? @ -No Drug Therapy requiring intensive monitoring for toxicity (Heparin, Nitro, Insulin, Cardizem)? @ -No Were any procedures done? @ -No Diagnosis/symptom? @ -Anemia Acute, or Chronic, or Acute on Chronic? @ -Acute Uncomplicated (without systemic symptoms) or Complicated (systemic symptoms)? @ -Uncomplicated Side effects of treatment? @ -No Exacerbation, Progression, or Severe Exacerbation? @ -No Poses a threat to life or bodily function? How? (Chest pain, USA, NV, pneumonia, PE, COPD, DKA, ARF, appy, cholecystitis, CVA, Diverticulitis, Homicidal, Suicidal, threat to staff... and all critical care pts) @ -No - Lab Data Result diagrams: 05/13/25 10:56 05/13/25 10:56 Lab Results 05/13/25 05/13/25 Range/Units 10:56 10:56 WBC 8.88 (4.50-10.00) 10*3/uL RBC 2.57 L (4.40-5.60) 10*6/uL Hgb 8.4 L (13.0-17.0) g/dL Hct 25.4 L (39.6-50.0) % MCV 98.8 H (80.0-97.0) fL MCH 32.7 H (27.0-32.0) pg MCHC 33.1 (32.0-37.0) g/dL Plt Count 245 (140-440) 10*3/uL MPV 10.2 (9.5-12.2) fL Immature Gran % (Auto) 0.3 % Neutrophils % 79.6 % Lymphocytes % 10.6 % Monocytes % 7.5 % Eosinophils % 1.8 % Basophils % 0.2 % Immature Gran # 0.03 (0.00-0.04) 10*3/uL Neutrophils # 7.06 (1.80-7.70) 10*3/uL Lymphocytes # 0.94 (0.90-5.00) 10*3/uL Monocytes # 0.67 (0.20-1.00) 10*3/uL Eosinophils # 0.16 (0.04-0.35) 10*3/uL Basophils # 0.02 (0.00-0.10) 10*3/uL Sodium 141 (137-145) mmol/L Potassium 4.5 (3.5-5.1) mmol/L Chloride 106 (98-107) mmol/L Carbon Dioxide 23 (22-30) mmol/L Anion Gap 12 mmol/L BUN 25 H (9-20) mg/dL Creatinine 1.64 H (0.66-1.25) mg/dL Est GFR (CKD-EPI)AfAm 48 (>60 ml/min/1.73 sqM) Est GFR (CKD-EPI)NonAf 42 (>60 ml/min/1.73 sqM) Glucose 86 (74-99) mg/dL Calcium 9.9 (8.4-10.2) mg/dL Total Bilirubin 0.5 (0.2-1.3) mg/dL AST 31 (17-59) U/L ALT 18 (4-49) U/L Alkaline Phosphatase 56 (38-126) U/L Total Protein 6.8 (6.3-8.2) g/dL Albumin 4.4 (3.5-5.0) g/dL Disposition Clinical Impression: Anemia Disposition: HOME SELF-CARE Condition: Good Instructions (If sedation given, give patient instructions): Anemia (ED) Additional Instructions: Please return to the Emergency Department if symptoms worsen or any other concerns. Is patient prescribed a controlled substance at d/c from ED?: No Referrals: uLcio Hartman DO [Primary Care Provider] - 1-2 days Time of Disposition: 11:40
[2025-05-13 11:11] LABS: Basophils # (A) 0.02 10*3/uL (0.00-0.10); Basophils % (A) 0.2 %; Eosinophils # (A) 0.16 10*3/uL (0.04-0.35); Eosinophils % (A) 1.8 %; HCT 25.4 % (39.6-50.0); HGB 8.4 g/dL (13.0-17.0); Lymphocytes # (A) 0.94 10*3/uL (0.90-5.00); Lymphocytes % (A) 10.6 %; MCH 32.7 pg (27.0-32.0); MCHC 33.1 g/dL (32.0-37.0); MCV 98.8 fL (80.0-97.0); Monocytes # (A) 0.67 10*3/uL (0.20-1.00); Monocytes % (A) 7.5 %; Neutrophils # (A) 7.06 10*3/uL (1.80-7.70); Neutrophils % (A) 79.6 %; Platelet Count 245 10*3/uL (140-440); RBC 2.57 10*6/uL (4.40-5.60); RDW 14.3 % (11.5-14.5); WBC 8.88 10*3/uL (4.50-10.00)
[2025-05-13 11:25] VITALS: BP 135/67; PULSE 65
[2025-05-13 11:27] LABS: ALT 18 U/L (4-49); AST 31 U/L (17-59); African American GFR (CKD) 48 (>60 ml/min/1.73 sqM); Albumin 4.4 g/dL (3.5-5.0); Alkaline Phosphatase 56 U/L (38-126); Anion Gap 12 mmol/L; Blood Urea Nitrogen 25 mg/dL (9-20); Calcium 9.9 mg/dL (8.4-10.2); Carbon Dioxide 23 mmol/L (22-30); Chloride 106 mmol/L (98-107); Glucose 86 mg/dL (74-99); Non-African American GFR(CKD) 42 (>60 ml/min/1.73 sqM); Potassium 4.5 mmol/L (3.5-5.1); Sodium 141 mmol/L (137-145); Total Protein 6.8 g/dL (6.3-8.2)
== END 2025-05-13 12:00 | disposition home or self-care (01) ==
LOC: EC 09:36
DX: D64.9 Anemia, unspecified (principal); F17.200 Nicotine dependence, unspecified, uncomplicated; Z88.1 Allergy status to other antibiotic agents; Z88.2 Allergy status to sulfonamides; Z88.8 Allergy status to other drugs, medicaments and biological substances
CPT/HCPCS: 36415; 80053; 85025; 99283